=== PATIENT | female | born 1960 | race Caucasian/White ===

== ENCOUNTER 2017-08-20 08:24 | Day surgery (SDC) | payer OTHER ==
[2017-08-20] MEDS ORDERED: Versed 2 MG/2 ML Injection IV ONE (08:25)
[2017-08-20] MEDS ORDERED: DIPRIVAN 200 MG/20 ML IV ONE (08:25)
[2017-08-20] MEDS ORDERED: Lactated Ringers 1,000 ML IV SCH (09:00)
--- NOTE | 2017-08-20 10:11 | HP ---
DATE OF SURGERY: 08/20/2017 HISTORY OF PRESENT ILLNESS: The patient is a 57 year-old with history of tubular adenoma in the past two or three follow up colonoscopies. No bloody stools. No pain. Family history of colon cancer. She also had problem with trouble swallowing upper esophagus, some bleeding in the throat from swollen upper esophagus. She is in need for upper endoscopy and colonoscopy. PAST MEDICAL HISTORY: Depression, arthritis, asthma. PAST SURGICAL HISTORY: Hysterectomy, diagnostic laparoscopy, carpal tunnel, septoplasty, kidney stone removal, trigger thumbs bilateral hands, cholecystectomy, colonoscopy and arthroscopy. MEDICATIONS: Omeprazole, Sertraline, Sertraline. ALLERGIES: PENICILLIN, HYDROCODONE, ERYTHROMYCIN, LATEX. FAMILY HISTORY: Grandfather had colon cancer. Hypertension. SOCIAL HISTORY: No smoking. Reports social alcohol abuse denies abuse. REVIEW OF SYSTEMS: Twelve systems reviewed per admission assessment. No chest pain or palpitations other systems negative or noncontributory as above and per preadmission questionnaire. PHYSICAL EXAMINATION: GENERAL: No acute distress. HEENT: Sclerae nonicteric. NECK: No JVD. CHEST: Equal excursion, nonlabored breathing. CVS: Regular rate and rhythm. ABDOMEN: Soft. No peritoneal signs. EXTREMITIES: No significant edema. NEURO: Alert, moving extremities symmetrically. No gross motor deficits noted. IMPRESSION: She is having some trouble swallowing upper esophagus and dysphagia in need of upper endoscopy possible biopsy, possible dilatation as well as history of tubular adenoma in need of follow up screening colonoscopy. I feel she is a candidate. She is shown the risk sheet and explained the procedure in detail but not limited to bleeding, infection; small risk of bowel injury or perforation possibly requiring open procedure, small risk of missed or nondiagnosis or incomplete exam possibly requiring barium enema, other studies or procedures, general risk of anesthesia or sedation, risk of bowel prep, postoperative risk of nausea or cramping but not limited to, risk of perforation with dilatation. She also understands if dilatation required also understands if improves her swallowing there is a possibility that she may need it done again down the road. She also understands the possibility of narrowed area on dilatation may not improve her symptoms that this is more of a neurological or functional problems. She understands all the above but not limited too. Will proceed with EGD possible biopsy, possible dilatation as well as screening colonoscopy as an outpatient.
[2017-08-20 15:27] VITALS: BP 148/77; PULSE 64; O2SAT 100
--- NOTE | 2017-08-21 09:04 | OP ---
SURGERY DATE/TIME: 08/20/2017 1015 PREOPERATIVE DIAGNOSES: 1) Dysphagia upper esophagus. 2) History of polyps. POSTOPERATIVE DIAGNOSES: 1) Mild chronic gastritis. 2) Proximal esophageal narrowing and spasm. 3) Poor right colon prep. 4) Small early polyps versus hyperplastic lesion transverse colon and sigmoid colon. 5) Diverticulosis. 6) Small internal and external hemorrhoids. 7) Tortuous colon. PROCEDURES: 1) EGD with cold biopsy of the antrum to evaluate for Helicobacter pylori. 2) Esophageal balloon dilatation proximal esophageal narrowing (size 20 balloon dilator). 3) Colonoscopy to cecum with hot snare polypectomy small sigmoid colon polyp. 4) Hot biopsy removal of small early polyp versus hyperplastic lesion transverse colon. SURGEON: Dr. Pascual Barney. ANESTHESIA: MAC. ESTIMATED BLOOD LOSS: Minimal. INDICATIONS: As noted above. Risks and benefits explained in detail and not limited to and consent obtained. DESCRIPTION OF PROCEDURE AND FINDINGS: The patient is taken to the endoscopy room. MAC anesthesia introduced. After official time out and no disagreement with planned procedure, a bite block positioned. Video gastroscope passed down the esophagus and had a narrowed upper esophageal area where she had been having symptoms. I felt that would benefit from dilatation. The scope was able to be just passed through. The gastroesophageal junction about 38 cm to the patent pylorus to the junction of the second and third portion of the duodenum. Duodenum and duodenal bulb grossly unremarkable. Back in the stomach showed some mild chronic gastritis. A cold biopsy taken to evaluate for CLOtest for Helicobacter pylori. There were no signs of any obvious ulcers or masses. The scope pulled back to gastroesophageal junction noted about 38 cm. Z-line was fairly crisp. No gross signs of Ho's. She did have some tertiary contractions of the esophagus. Otherwise the scope was pulled back. She had proximal esophageal narrowing and it was felt would benefit from dilatation. The scope was passed back down the stomach. Balloon dilator carefully inserted. The scope pulled back up to the proximal esophagus and in three stages, first initial stage for 30 to 40 seconds. The second stage for 30 to 40 seconds. The final stage size 20 balloon dilator for 2 minutes dilating the proximal esophageal narrowing and spasm. The balloon catheter was then released and withdrawn. The scope is passed back down in the stomach and on withdrawal there were no signs of any full thickness issues secondary to dilatation. The area was much more widely patent. The scope was withdrawn. The patient tolerated the procedure well. Attention was then turned to the colonoscopy. Digital rectal exam did not reveal any rectal masses. She did have some internal and external hemorrhoids. Video colonoscope inserted and passed up the tortuous sigmoid, descending, transverse colon. The left colon was much better prepped. The right colon had a large amount of stool semi-solid, liquidy and solid stool very much limiting the exam for small lesions. With external pressure and positioning on her back the scope was able to be passed through the cecum. Appendiceal orifice and ileocecal valve was noted. The scope was slowly and carefully withdrawn. There were no signs of any large polyps, masses or obstructing lesions. There was a small 2 mm raised lesion versus early polyp or hyperplastic lesion in the transverse colon removed with hot biopsy forceps and brief bursts of cautery. Good hemostasis noted. The scope was then carefully pulled back. She did have some diverticulosis. She had some small internal and external hemorrhoids. There was a small polyp that was removed with hot snare in the proximal sigmoid colon with brief bursts of cautery and hot snare elevating well away from bowel wall. Good hemostasis noted. The staff said the polyp was retrieved. The scope was then pulled back to the rectum. It had some internal and external hemorrhoids. Otherwise no signs of any large polyps, masses or obstructing lesions. The scope was withdrawn. The patient tolerated the procedure well. There were no immediate complications.
== END 2017-08-20 12:10 | disposition home or self-care (01) ==
LOC: SDC 08:24
PROVIDERS: ATTEND Surgery
PROC: 0DB78ZX Excision of Stomach, Pylorus, Via Natural or Artificial Opening Endoscopic, Diagnostic (ICD-10-PCS; principal; 2017-08-20)
PROC: 0D718ZZ Dilation of Upper Esophagus, Via Natural or Artificial Opening Endoscopic (ICD-10-PCS; 2017-08-20)
PROC: 0DBN8ZX Excision of Sigmoid Colon, Via Natural or Artificial Opening Endoscopic, Diagnostic (ICD-10-PCS; 2017-08-20)
PROC: 0DBL8ZX Excision of Transverse Colon, Via Natural or Artificial Opening Endoscopic, Diagnostic (ICD-10-PCS; 2017-08-20)
DX: K29.50 Unspecified chronic gastritis without bleeding (principal); K22.2 Esophageal obstruction; K63.5 Polyp of colon; K57.90 Diverticulosis of intestine, part unspecified, without perforation or abscess without bleeding; K64.4 Residual hemorrhoidal skin tags; K64.8 Other hemorrhoids; Z86.010 Personal history of colon polyps
CPT/HCPCS: 00740; 87081; C1726; J2250; J2704

== ENCOUNTER 2017-09-14 15:28 | Emergency (ER) | payer OTHER ==
[2017-09-14 15:45] VITALS: O2SAT 96
[2017-09-14] MEDS ORDERED: TORAdol 30 mg Injection IM ONE (16:17)
--- NOTE | 2017-09-14 16:22 | ERPHSYRPT ---
- History of Present Illness Time Seen by Provider: 09/14/17 16:17 Source: patient Exam Limitations: no limitations Patient Subjective Stated Complaint: here for cough productive, runny nose, no fever, was seen sunday and started on mederol dose pack, Triage Nursing Assessment: pt alert,resp easy, chest clear.productive green/ brown cough, skin w/d pink Physician History: The patient is a 57-year-old female who did receive her influenza vaccination this year presents with complaints of cough, nasal congestion, runny nose, sore throat, and hoarseness for 6 days. She was seen in [facility] 4 days ago and was told that if she had the flu, there was nothing more they could do then give her a Medrol Dosepak. She has been taking the steroid without significant relief. She has had sinus surgery and is concerned that she has a sinus infection because her sinus drainage sometimes is green and bloody. Her past medical history is significant for GERD, sinusitis, and sinus surgery. Timing/Duration: day(s) (6) Cough Quality/Degree: dry cough Possible Cause: occasional episodes Modifying Factors: Improves With: coughing Associated Symptoms: nasal drainage, sore throat Allergies/Adverse Reactions: cefaclor [From Ceclor] Allergy (Verified 09/14/17 15:45) erythromycin base Allergy (Verified 09/14/17 15:45) hydrocodone Allergy (Verified 09/14/17 15:45) latex Allergy (Verified 09/14/17 15:45) Penicillins Allergy (Verified 09/14/17 15:45) Sulfa (Sulfonamide Antibiotics) Allergy (Verified 09/14/17 15:45) citalopram [From Celexa] Adverse Reaction (Verified 09/14/17 15:45) Home Medications: Cetirizine HCl [Zyrtec] 10 mg PO DAILY 08/15/17 [History] Omeprazole [Prilosec] 40 mg PO DAILY 08/15/17 [History] Sertraline HCl [Zoloft] 50 mg PO DAILY 08/15/17 [History] Hx Influenza Vaccination/Date Given: Yes Hx Pneumococcal Vaccination/Date Given: No - Review of Systems Constitutional: No Fever, No Chills Eyes: Discharge Ears, Nose, & Throat: Nose Congestion, Nose Discharge, Throat Pain, Hoarse Respiratory: Cough Cardiac: No Chest Pain, No Edema, No Syncope Abdominal/Gastrointestinal: No Abdominal Pain, No Nausea, No Vomiting, No Diarrhea Genitourinary Symptoms: No Dysuria Musculoskeletal: No Back Pain, No Neck Pain Skin: No Rash Neurological: No Dizziness, No Focal Weakness, No Sensory Changes Psychological: No Symptoms Endocrine: No Symptoms Hematologic/Lymphatic: No Symptoms Immunological/Allergic: No Symptoms All Other Systems: Reviewed and Negative - Past Medical History Pertinent Past Medical History: Yes GI Medical History: Esophageal Disorder, Other Psycho-Social History: Depression - Past Surgical History Genitourinary: No Pertinent History Female Surgical History: Hysterectomy Other Surgical History: carpal tunnel.kidney stone removal, - Social History Smoking Status: Never smoker Exposure to second hand smoke: No Drug Use: none Patient Lives Alone: No - Female History Hx Last Menstrual Period: post Hx Now: No - Nursing Vital Signs Nursing Vital Signs: Initial Vital Signs Temperature 98.7 F 09/14/17 15:37 Pulse Rate 87 09/14/17 15:37 Respiratory Rate 20 09/14/17 15:37 Blood Pressure 146/83 09/14/17 15:37 O2 Sat by Pulse Oximetry 96 09/14/17 15:37 Pain Scale Pain Intensity 2 - Physical Exam General Appearance: mild distress Eye Exam: PERRL/EOMI, eyes nml inspection Ears, Nose, Throat Exam: normal ENT inspection, TMs normal, pharynx normal, moist mucous membranes Neck Exam: normal inspection, non-tender, supple, full range of motion Respiratory Exam: normal breath sounds, lungs clear, No respiratory distress Cardiovascular Exam: regular rate/rhythm, normal heart sounds Gastrointestinal/Abdomen Exam: soft, No tenderness Pelvic Exam: not done Rectal Exam: not done Back Exam: normal inspection, No CVA tenderness, No vertebral tenderness Extremity Exam: normal inspection, normal range of motion Neurologic Exam: alert, oriented x 3, cooperative, normal mood/affect, sensation nml, No motor deficits Skin Exam: normal color, warm, dry, No rash Lymphatic Exam: No adenopathy SpO2 Interpretation: normal SpO2: 96 Oxygen Delivery: Room Air - Radiology Exams Chest X-ray Interpretation: Reviewed by me, Negative (Per Dr Palma.) Ordered Tests: Active Orders 24 hr Category Date Time Status CHEST 2 VIEWS (PA AND LAT) Stat Exams 09/14/17 16:17 Completed Medication Summary Discontinued Medications Generic Name Dose Route Start Last Admin Trade Name Freq PRN Reason Stop Dose Admin Ketorolac Tromethamine 60 mg 09/14/17 16:17 09/14/17 16:37 Toradol 30 Mg Injection IM 09/14/17 16:18 60 mg STAT ONE Administration Ketorolac Tromethamine Confirm 09/14/17 16:37 Toradol 30 Mg Injection Administered 09/14/17 16:38 Dose 60 mg .ROUTE .STK-MED ONE - Progress Progress: improved Counseled pt/family regarding: diagnosis, rad results - Departure Time of Disposition: 16:55 Departure Disposition: Home Clinical Impression: Influenza, Sinusitis Condition: Stable Critical Care Time: No Referrals: LESLY WHIPPLE [Primary Care Provider] - Additional Instructions: Clinically you have an influenza infection. You also have sinusitis. You were given Toradol 60 mg by IM in the ER. Take azithromycin 500 mg daily for 3 days. Use Afrin nasal spray [id number] for 3 days as well. Follow-up as needed. Prescriptions: Azithromycin 500 mg PO DAILY #3 tablet
[2017-09-14] MEDS ORDERED: TORAdol 30 mg Injection ONE (16:37)
--- NOTE | 2017-09-14 16:53 | XRAY ---
Indication: Cough. Laryngitis. Comparison: None PA/lateral chest demonstrates normal heart and lungs. Bony thorax intact.
[2017-09-14 17:07] VITALS: BP 144/89; PULSE 72
== END 2017-09-14 17:04 | disposition home or self-care (01) ==
LOC: ED 15:28
DX: J11.1 Influenza due to unidentified influenza virus with other respiratory manifestations (principal); J32.9 Chronic sinusitis, unspecified; R05 Cough; R09.81 Nasal congestion; R49.0 Dysphonia
CPT/HCPCS: 71020; 96372; 99284; J1885

== ENCOUNTER 2017-11-06 07:58 | Day surgery (SDC) | payer OTHER ==
[~2017-11-06 07:58] MED LIST: Zofran 4 MG/2 ML VIAL IV PRN
[2017-11-06] MEDS ORDERED: Versed 2 MG/2 ML Injection IV ONE (07:59)
[2017-11-06] MEDS ORDERED: DIPRIVAN 200 MG/20 ML IV ONE (07:59)
[2017-11-06] MEDS ORDERED: Lactated Ringers 1,000 ML IV SCH (08:00)
[2017-11-06] MEDS ORDERED: Ak-Dilate OPHTHALMIC*** 0.71 ML, Cyclogyl 1% OPHTH SOL 5 ML 0.71 ML, GATIFLOXACIN 0.5% ... OP ONE ×4 (08:00)
[2017-11-06] MEDS ORDERED: TETRACAINE 0.5% STERI-UNIT SOL OP ONE ×2 (08:00)
[2017-11-06] MEDS ORDERED: Lactated Ringers 1,000 ML IV ONE (08:29)
[2017-11-06 11:56] VITALS: O2SAT 100
[2017-11-06] MEDS ORDERED: BETADINE 5% OPHTHALMIC 30 ML OP ONE (12:00)
[2017-11-06] MEDS ORDERED: LIDOCAINE HCL 1% AMPUL 5 ML IJ ONE (12:00)
[2017-11-06] MEDS ORDERED: Epinephrine Preservative Free 1 MG/ML INTRAOP ONE (12:00)
[2017-11-06 13:02] VITALS: BP 184/92; PULSE 76
--- NOTE | 2017-11-07 08:35 | OP ---
DATE/TIME OF OPERATION: 11/06/2016 1053 TIME DICTATED: 1211 PREOPERATIVE DIAGNOSIS: Senile cataract of left eye. POSTOPERATIVE DIAGNOSIS: Senile cataract of left eye. SURGEON: Jodee Ortiz MD BACON DE RINDER: None. OPERATION: Cataract extraction of left eye with an intraocular lens implant. STANDARD __X___ COMPLEX ANESTHESIA: MAC. ___X___ Monitored anesthesia care in combination with topical and intra-cameral anesthesia (because of the established specific risk of reflux, arrhythmias, or an anxiety attack associated with ocular manipulation as well as difficulty of the electron tube assembler to manage such potentially catastrophic events while simultaneously attempting to complete the surgical procedure, it was deemed necessary for the patient's safety to have an anesthesiologist or a nurse channel cementer outsole machine present during the procedure whenever possible. The anesthesiologist or the nurse channel cementer outsole machine was utilized to monitor and regulate the intravenous sedation of the patient, so the patient was cooperative, relaxed and comfortable). Topical anesthesia using Tetracaine eye drops together with intra cameral anesthesia using Lidocaine 1% MPF. The nurse was utilized to monitor the patient. ANESTHESIA PROVIDER: Andrea Aranda CRNA. COMPLICATIONS: None. BLOOD LOSS: None. INDICATIONS: The patient is undergoing cataract surgery in the hopes of eliminating the visual complaints and difficulty. PROCEDURE: After arriving at the facility's outpatient surgery area, an IV was started; the patient was given 5 mg of p.o. Versed. (If an anesthesia provider was not monitoring the patient) The patient was then given topical anesthetic Tetracaine eye drops. A cotton pellet was soaked into a solution of a combination of Zymaxid 0.5%, Ayaz-Synephrine 2.5% and Ocufen (other drops might have been substituted referenced in the patient's record). The pellet was inserted by the RN into the lower conjunctival cul-de-sac with a sterile forceps and left for 20 minutes. The pellet was then removed by the RN with a sterile forceps before taking the patient to the operating room. The preoperative area nurse identified the patient and marked the correct eye to be operated on. I identified the correct eye to be operated on and marked it appropriately in the outpatient surgery area. The patient was then taken into the operating room. Tetracaine eye drops were installed again in the correct eye. The eyelids and the lashes and the lid margins were scrubbed with Betadine solution. One drop of the diluted Betadine solution was placed in the conjunctival cul-de-sac for 45 seconds and then was irrigated. A drop of Tetracaine Gel was placed in the conjunctival cul-de-sac. The patient's forehead was taped to secure it during the procedure. The patient was monitored. The patient was then draped in the usual way for this procedure. An eye speculum was used to separate the eyelids. The eye was then fixated and a temporal 2.5 mm incision was made in the clear cornea temporally at the limbus. Through the incision, 0.25 cc of 1% non-preserved lidocaine was injected into the anterior chamber for intracameral anesthesia. The anterior chamber was then filled with viscoelastic. The pupil was small. I felt that it would be safer to mechanically dilate the pupil. A Malyugin ring was used at this point which dilated the pupil. That was removed at the end of the procedure prior to aspiration of the viscoelastic from the anterior chamber and posterior to the intraocular lens implant. The cataract had a great amount of cortical changes. That rendered seeing the anterior capsule difficult for a safe performance of an anterior capsulotomy. I injected an air bubble into the anterior chamber. I then injected 1 ML of vision blue solution into the anterior chamber. The vision blue solution was irrigated from the anterior chamber after 30 seconds. The anterior capsule was stained which facilitated performing the anterior capsulotomy safely. After that was completed, a cystotome was introduced into the anterior chamber and a round anterior capsulotomy was performed. The capsule was removed by a forceps. Hydrodissection was next carried utilizing a 25-gauge cannula and balanced salt solution to delineate the cortical material from the capsule and the nucleus from the cortical material. The nucleus was rotated freely into the capsular bag with no difficulty. The phaco tip of the [employer] Phacoemulsifier was introduced into the anterior chamber and two grooves were made into the nucleus 90 degrees apart. Using two spatulas resulted into the nucleus being fractured into four quadrants. The phaco tip was then used to remove each quadrant of the nucleus. Viscoelastic was used during this process to protect the corneal endothelium. Once the entire nucleus was removed, the phaco tip then was removed and the irrigation tip was introduced into the eye and the cortex was removed. The posterior capsule was polished. It was noticed that there was a tear into the posterior capsule with few vitreous strands into the pupil plan. An anterior vitrectomy was performed. A 9.50 diopter, [id number], posterior chamber lens implant, was inspected and found to be grossly normal. The implant was inserted into the implant injector cartridge; Viscoelastic again was introduced into the anterior chamber, which filled the capsular bag. The implant injector's cartridge tip was placed at the limbal wound and the posterior chamber implant was released into the capsular bag and rotated appropriately. The implant was found to be into the capsular bag and it was centered. __X__ 0.2 ml of Tri-Moxi was introduced via 27 gauge cannula into the vitreous cavity through the ciliary processes. Viscoelastic was aspirated from the anterior chamber and posterior to the intraocular lens implant from the capsular bag using the irrigating tip. The anterior chamber was irrigated and filled with 5 cc antibiotic solution (500 cc of BSS plus 2 ml of Fortaz 100 mg/ml) ( if patient was not allergic to the medication). The lips of the corneal incision were hydrated using BSS solution. The anterior chamber was checked and found to be water tight. One drop each of antibiotic, steroid and NSAID drops (refer to chart for drops used) were placed in the conjunctival cul-de-sac of the operated eye. Patient tolerated the procedure quite well and left the operating room in satisfactory condition. DISCHARGE SUMMARY: The patient was released in stable condition. The patient and those with the patient were given an instruction sheet as of how to care for the eye after surgery as well as counseling on any abnormal laboratory studies by the postoperative RN. The patient was also given an appointment card for follow-up in the office and is to call immediately for any difficulties including but not limited to pain in the eye, decreased vision, discharge from the eye, headache and or fever. DISCHARGE DIAGNOSIS: Pseudophakia of left eye.
== END 2017-11-06 14:12 | disposition home or self-care (01) ==
LOC: SDC 07:58
PROVIDERS: ATTEND Ophthalmology
PROC: 08RK3JZ Replacement of Left Lens with Synthetic Substitute, Percutaneous Approach (ICD-10-PCS; principal; 2017-11-06)
PROC: 08B53ZZ Excision of Left Vitreous, Percutaneous Approach (ICD-10-PCS; 2017-11-06)
DX: H25.9 Unspecified age-related cataract (principal); J45.909 Unspecified asthma, uncomplicated; F32.9 Major depressive disorder, single episode, unspecified; M19.90 Unspecified osteoarthritis, unspecified site; K21.9 Gastro-esophageal reflux disease without esophagitis; Z79.899 Other long term (current) drug therapy
CPT/HCPCS: 00142; C1780; J0171; J2250; J2704; A9270-GY

== ENCOUNTER 2017-12-04 08:57 | Day surgery (SDC) | payer OTHER ==
[~2017-12-04 08:57] MED LIST changes: +Ak-Dilate OPHTHALMIC*** 0.71 ML, Cyclogyl 1% OPHTH SOL 5 ML 0.71 ML, GATIFLOXACIN 0.5% ... OP ONE; +Lactated Ringers 1,000 ML IV SCH; +TETRACAINE 0.5% STERI-UNIT SOL OP ONE; -Zofran 4 MG/2 ML VIAL IV PRN
[2017-12-04] MEDS ORDERED: Versed 2 MG/2 ML Injection IV ONE (08:58)
[2017-12-04] MEDS ORDERED: DIPRIVAN 200 MG/20 ML IV ONE (08:58)
[2017-12-04] MEDS ORDERED: Zofran 4 MG/2 ML VIAL IV PRN (09:00)
[2017-12-04] MEDS ORDERED: ACETAZOLAMIDE 250 MG TABLET PO ONE (09:00)
[2017-12-04] MEDS ORDERED: Lactated Ringers 1,000 ML IV ONE (09:12)
[2017-12-04 12:01] VITALS: BP 159/95; PULSE 74; O2SAT 100
[2017-12-04] MEDS ORDERED: LIDOCAINE HCL 1% AMPUL 5 ML IJ ONE (13:45)
[2017-12-04] MEDS ORDERED: Epinephrine Preservative Free 1 MG/ML INTRAOP ONE (13:45)
[2017-12-04] MEDS ORDERED: BETADINE 5% OPHTHALMIC 30 ML OP ONE (13:45)
--- NOTE | 2017-12-04 14:58 | OP ---
DATE/TIME OF OPERATION: 12/04/2017 1045 TIME DICTATED: 1247 PREOPERATIVE DIAGNOSIS: Senile cataract of right eye. POSTOPERATIVE DIAGNOSIS: Senile cataract of right eye. SURGEON: Jodee Ortiz MD PRINCIPAL GIFTS OFFICER: None. OPERATION: Cataract extraction of right eye with an intraocular lens implant. STANDARD __X___ COMPLEX ANESTHESIA: MAC. ___X___ Monitored anesthesia care in combination with topical and intra-cameral anesthesia (because of the established specific risk of reflux, arrhythmias, or an anxiety attack associated with ocular manipulation as well as difficulty of the flight service agent to manage such potentially catastrophic events while simultaneously attempting to complete the surgical procedure, it was deemed necessary for the patient's safety to have an anesthesiologist or a nurse clam shovel operator present during the procedure whenever possible. The anesthesiologist or the nurse clam shovel operator was utilized to monitor and regulate the intravenous sedation of the patient, so the patient was cooperative, relaxed, and comfortable). Topical anesthesia using Tetracaine eye drops together with intra cameral anesthesia using Lidocaine 1% MPF. The nurse was utilized to monitor the patient. ANESTHESIA PROVIDER: Andrea Aranda CRNA. COMPLICATIONS: None. BLOOD LOSS: None. INDICATIONS: The patient is undergoing cataract surgery in the hopes of eliminating the visual complaints and difficulty. PROCEDURE: After arriving at the facility's outpatient surgery area, an IV was started; the patient was given 5 mg of p.o. Versed. (If an anesthesia provider was not monitoring the patient) The patient was then given topical anesthetic Tetracaine eye drops. A cotton pellet was soaked into a solution of a combination of Zymaxid 0.5%, Ayaz-Synephrine 2.5% and Ocufen (other drops might have been substituted referenced in the patient's record). The pellet was inserted by the RN into the lower conjunctival cul-de-sac with a sterile forceps and left for 20 minutes. The pellet was then removed by the RN with a sterile forceps before taking the patient to the operating room. The preoperative area nurse identified the patient and marked the correct eye to be operated on. I identified the correct eye to be operated on and marked it appropriately in the outpatient surgery area. The patient was then taken into the operating room. Tetracaine eye drops were installed again in the correct eye. The eyelids and the lashes and the lid margins were scrubbed with Betadine solution. One drop of the diluted Betadine solution was placed in the conjunctival cul-de-sac for 45 seconds and then was irrigated. A drop of Tetracaine Gel was placed in the conjunctival cul-de-sac. The patient's forehead was taped to secure it during the procedure. The patient was monitored. The patient was then draped in the usual way for this procedure. An eye speculum was used to separate the eyelids. The eye was then fixated and a temporal 2.5 mm incision was made in the clear cornea temporally at the limbus. Through the incision, 0.25 cc of 1% non-preserved lidocaine was injected into the anterior chamber for intracameral anesthesia. The anterior chamber was then filled with viscoelastic. The pupil was small. I felt that it would be safer to mechanically dilate the pupil. A Malyugin ring was used at this point which dilated the pupil. That was removed at the end of the procedure prior to aspiration of the viscoelastic from the anterior chamber and posterior to the intraocular lens implant. The cataract had a great amount of cortical changes. That rendered seeing the anterior capsule difficult for a safe performance of an anterior capsulotomy. I injected an air bubble into the anterior chamber. I then injected 1 ML of vision blue solution into the anterior chamber. The vision blue solution was irrigated from the anterior chamber after 30 seconds. The anterior capsule was stained which facilitated performing the anterior capsulotomy safely. After that was completed, a cystotome was introduced into the anterior chamber and a round anterior capsulotomy was performed. The capsule was removed by a forceps. Hydrodissection was next carried utilizing a 25-gauge cannula and balanced salt solution to delineate the cortical material from the capsule and the nucleus from the cortical material. The nucleus was rotated freely into the capsular bag with no difficulty. The phaco tip of the [facility] Phacoemulsifier was introduced into the anterior chamber and two grooves were made into the nucleus 90 degrees apart. Using two spatulas resulted into the nucleus being fractured into four quadrants. The phaco tip was then used to remove each quadrant of the nucleus. Viscoelastic was used during this process to protect the corneal endothelium. Once the entire nucleus was removed, the phaco tip then was removed and the irrigation tip was introduced into the eye and the cortex was removed. The posterior capsule was polished. It was noticed that there was a tear into the posterior capsule with few vitreous strands into the pupil plan. An anterior vitrectomy was performed. A 10.00 diopter, [id number], posterior chamber lens implant, was inspected and found to be grossly normal. The implant was inserted into the implant injector cartridge; Viscoelastic again was introduced into the anterior chamber, which filled the capsular bag. The implant injector's cartridge tip was placed at the limbal wound and the posterior chamber implant was released into the capsular bag and rotated appropriately. The implant was found to be into the capsular bag and it was centered. 0.2 ml of Tri-Moxi was introduced via 27 gauge cannula into the vitreous cavity through the ciliary processes. Viscoelastic was aspirated from the anterior chamber and posterior to the intraocular lens implant from the capsular bag using the irrigating tip. The anterior chamber was irrigated and filled with 5 cc antibiotic solution (500 cc of BSS plus 2 ml of Fortaz 100 mg/ml) ( if patient was not allergic to the medication). The lips of the corneal incision were hydrated using BSS solution. The anterior chamber was checked and found to be water tight. ___X___ One drop each of antibiotic, steroid and NSAID drops (refer to chart for drops used) were placed in the conjunctival cul-de-sac of the operated eye. Patient tolerated the procedure quite well and left the operating room in satisfactory condition. DISCHARGE SUMMARY: The patient was released in stable condition. The patient and those with the patient were given an instruction sheet as of how to care for the eye after surgery as well as counseling on any abnormal laboratory studies by the postoperative RN. The patient was also given an appointment card for follow-up in the office and is to call immediately for any difficulties including but not limited to pain in the eye, decreased vision, discharge from the eye, headache and or fever. DISCHARGE DIAGNOSIS: Pseudophakia of right eye.
== END 2017-12-04 12:02 | disposition home or self-care (01) ==
LOC: SDC 08:57
PROVIDERS: ATTEND Ophthalmology
PROC: 08RJ3JZ Replacement of Right Lens with Synthetic Substitute, Percutaneous Approach (ICD-10-PCS; principal; 2017-12-04)
DX: H25.9 Unspecified age-related cataract (principal); Z96.1 Presence of intraocular lens; F32.9 Major depressive disorder, single episode, unspecified; K21.9 Gastro-esophageal reflux disease without esophagitis; J45.909 Unspecified asthma, uncomplicated
CPT/HCPCS: C1780; J0171; J2250; J2704; A9270-GY

== ENCOUNTER 2018-06-03 08:08 | Day surgery (SDC) | payer OTHER ==
[~2018-06-03 08:08] MED LIST changes: -Ak-Dilate OPHTHALMIC*** 0.71 ML, Cyclogyl 1% OPHTH SOL 5 ML 0.71 ML, GATIFLOXACIN 0.5% ... OP ONE; +Lactated Ringers 1,000 ML IV ONE; -Lactated Ringers 1,000 ML IV SCH; -TETRACAINE 0.5% STERI-UNIT SOL OP ONE
[2018-06-03] MEDS ORDERED: DIPRIVAN 200 MG/20 ML IV ONE (08:09)
[2018-06-03] MEDS ORDERED: Ketamine HCl 50 MG/ML IV ONE (08:09)
--- NOTE | 2018-06-03 08:19 | HP ---
DATE OF SURGERY: 06/03/2018 HISTORY OF PRESENT ILLNESS: The patient is a 57 year-old upper esophagus area chokes mainly solids that had been going on for the past one and a half months. Prior dilatation in the past. PAST MEDICAL HISTORY: Depression, asthma, arthritis. PAST SURGICAL HISTORY: Reconstruction of left foot in the past. Diagnostic laparoscopy for endometriosis in the past. She had a hysterectomy in the past. Appendectomy in the past. Carpal tunnel on left and the right, trigger thumb left and right, septoplasty, kidney stone removal in the past. Laparoscopic cholecystectomy, had lipomas removed. Upper endoscopy and colonoscopy in the past. Arthroscopy of the knee. Achilles tendon surgery in the past. Left knee replacement in the past. Cataract surgery in the past. MEDICATIONS: Omeprazole, Sertraline, cetirizine, lisinopril. ALLERGIES: HYDROCODONE, PENICILLIN, CODEINE, SULFA, ERYTHROMYCIN, CITALOPRAM, CECLOR. LATEX. FAMILY HISTORY: Cancer, heart disease, hypertension. SOCIAL HISTORY: No smoking, social alcohol use denies abuse. REVIEW OF SYSTEMS: Twelve systems reviewed pertinent for as noted above. No chest pain or palpitations other systems negative or noncontributory as above and per preadmission questionnaire. PHYSICAL EXAMINATION: GENERAL: No acute distress. HEENT: Sclerae nonicteric. NECK: No JVD. CHEST: Equal excursion, nonlabored breathing. CVS: Regular rate and rhythm. ABDOMEN: Soft. No peritoneal signs. EXTREMITIES: No significant edema. NEURO: Alert, oriented, moving extremities symmetrically. No gross motor deficits noted. IMPRESSION: Dysphagia upper esophagus. I feel the patient would benefit from EGD, possible biopsy, possible dilatation and also will test for eosinophilic esophagitis. Risks and benefits explained in detail but not limited to bleeding or infection, risk of bowel injury or perforation possibly requiring open procedure, risk of missed or nondiagnosis or incomplete exam possibly requiring barium swallow, other studies or procedures. She understands that if dilatation improves her swallowing that she may need it repeated again in the future. She understands it could be more functional or neurologic issue rather than mechanical narrowing and dilatation may not improve her symptoms. She understands and agrees to the planned procedure and will proceed with EGD, possible biopsy, possible dilatation as an outpatient.
[2018-06-03] MEDS: Lactated Ringers 1,000 ML IV SCH (08:29)
[2018-06-03 11:35] VITALS: BP 147/97; PULSE 72; O2SAT 99
--- NOTE | 2018-06-03 14:53 | OP ---
SURGERY DATE/TIME: 06/03/2018 1016 PREOPERATIVE DIAGNOSIS: Dysphasia. POSTOPERATIVE DIAGNOSES: 1) Mild gastritis. 2) Mild distal esophageal erythema biopsy path pending. 3) Symptomatic proximal esophageal narrowing and spasm. PROCEDURES: 1) EGD with cold biopsy of the antrum to evaluate for Helicobacter pylori. 2) Cold biopsy distal esophageal erythema. 3) Proximal esophageal balloon dilatation (size 20 balloon dilator). SURGEON: Dr. Pascual Barney. ANESTHESIA: MAC. ESTIMATED BLOOD LOSS: Minimal. INDICATIONS: As noted above. Risks and benefits explained in detail and not limited to and consent obtained. DESCRIPTION OF PROCEDURE AND FINDINGS: The patient is taken to the operating room. MAC anesthesia introduced. After official time out and no disagreement with planned procedure, bite block positioned. Video gastroscope passed into the oropharynx and proximal esophagus. There was no obvious mass or mucosal lesions to biopsy as she already had proximal esophageal narrowing and spasm and she was having symptoms here. The scope was able to be just passed through this year but given her degree of symptoms felt it warranted dilatation at the end of the procedure. The scope passed back down into the stomach through the patent pylorus to the junction of the second and third portions of the duodenum. Duodenum and duodenal bulb grossly unremarkable. Back in the stomach she had some mild gastritis. Cold biopsy taken to evaluate for Helicobacter pylori. Otherwise there were no signs of any ulcers, masses or other mucosal lesions. The scope was retroflexed. The gastroesophageal junction was fairly snug against the scope. No signs of any significant hiatal hernia. The scope pulled back to the gastroesophageal junction at about 39 cm. Z-line was fairly crisp. There was some distal esophageal erythema. No evidence of Ho's. No evidence of any erosive esophagitis. Cold biopsy taken for path. Good hemostasis noted. Otherwise the scope pulled up. Again, there were no other mucosal lesions throughout the remainder of the esophagus but there was symptomatic proximal esophageal narrowing and spasm. It was felt would benefit from dilatation. The scope passed back down into the stomach. Balloon catheter size 20 inserted and then pulled back up to the proximal esophageal narrowing where it was gradually inflated to first stage 45 second and second stage 45 seconds and final stage for 2 minutes. It should be noted the patient was doing a fair amount of coughing throughout this procedure requiring sedation per anesthesia. At this point at the final stage for 2 minutes with size 20 balloon dilator the balloon was decompressed pulled free and passed off. The scope is passed back down through this area which was much more widely patent. There was minimal superficial abrasion. No evidence of any full thickness disease or injury secondary to dilatation. Good hemostasis noted. The scope is then passed down into the stomach and slowly withdrawn. The area was much more widely patent. The scope is withdrawn. The patient tolerated the procedure well. There were no immediate complications. Findings discussed with family or friend out in the waiting area. I will see her back in the office in a couple weeks as I will be out of town next week. If she has any questions my partners can be contacted.
== END 2018-06-03 11:48 | disposition home or self-care (01) ==
LOC: SDC 08:08
PROVIDERS: ATTEND Surgery
DX: K29.70 Gastritis, unspecified, without bleeding (principal); R47.02 Dysphasia; L53.8 Other specified erythematous conditions; K22.2 Esophageal obstruction; J45.909 Unspecified asthma, uncomplicated; M19.90 Unspecified osteoarthritis, unspecified site; F32.9 Major depressive disorder, single episode, unspecified; N80.9 Endometriosis, unspecified
CPT/HCPCS: 88305; 94250; C1726; J2704

== ENCOUNTER 2019-12-07 22:53 | Emergency (ER) | payer OTHER ==
[2019-12-07 23:08] VITALS: O2SAT 96
--- NOTE | 2019-12-07 23:29 | ERPHSYRPT ---
- History of Present Illness Time Seen by Provider: 12/07/19 23:10 Source: patient Patient Subjective Stated Complaint: pt cut her finger on a mandoline cutting sweet potatoes Triage Nursing Assessment: pt c/o cut to rt hand little finger. Pt was cutting sweet potatoes using a mandoline making dog treats and sliced her finger. Physician History: The patient is a [id number] 59-year-old female who presents with a chief complaint of a laceration to her right pinky finger. Onset was around 2200 hrs. this evening. The pain is described as a sharp pain that is nonradiating and constant. She endorsed having venous bleeding from the wound that has not stopped since that time despite applying direct pressure. She is not taking any antiplatelets or any anticoagulants. Her last tetanus prophylaxis was reportedly 3 years ago. She reported was using some sort of food slicer to make dog crates when she injured her finger Allergies/Adverse Reactions: hydrocodone Allergy (Severe, Verified 06/03/18 08:23) Tightness of Throat erythromycin base Allergy (Intermediate, Verified 06/03/18 08:23) Nausea and Vomiting Penicillins Allergy (Intermediate, Verified 06/03/18 08:23) Hives Sulfa (Sulfonamide Antibiotics) Allergy (Intermediate, Verified 06/03/18 08:23) Hives latex Allergy (Mild, Verified 06/03/18 08:23) Skin Irritation cefaclor [From Ceclor] Allergy (Unknown, Verified 06/03/18 08:23) codeine Allergy (Verified 06/03/18 08:23) citalopram [From Celexa] Adverse Reaction (Unknown, Verified 06/03/18 08:23) Home Medications: Cetirizine HCl [Zyrtec] 10 mg PO DAILY 08/15/17 [History] Omeprazole [Prilosec] 40 mg PO DAILY 08/15/17 [History] Sertraline HCl [Zoloft] 50 mg PO DAILY 08/15/17 [History] lisinopriL [Zestril] 2.5 mg PO DAILY 11/30/17 [History] Meloxicam 15 mg PO DAILY 12/07/19 [History] Hx Tetanus, Diphtheria Vaccination/Date Given: Yes Hx Influenza Vaccination/Date Given: Yes Hx Pneumococcal Vaccination/Date Given: No Immunizations Up to Date: Yes Travel Risk - International Travel Have you traveled outside of the country in past 3 weeks: No Have you or anyone close to you been diagnosed with or: No Do your reside in a community with a known COVID-19 case?: No - Coronavirus Screening Has patient experienced Coronavirus symptoms: No - Review of Systems Constitutional: No Fever, No Chills Skin: Other (Wound to L pinky finger with bleeding) Neurological: No Symptoms All Other Systems: Reviewed and Negative - Past Medical History Pertinent Past Medical History: Yes Neurological History: Migraines ENT History: Cataracts Cardiac History: Hypertension Respiratory History: Asthma, Pneumonia Endocrine Medical History: No Pertinent History Musculoskeletal History: Fractures, Osteoarthritis GI Medical History: Esophageal Disorder, GERD, Gallbladder Disease, Other History: No Pertinent History Psycho-Social History: Anxiety, Depression Female Reproductive Disorders: No Pertinent History Other Medical History: L 4th and 5th metatarsal fx - Past Surgical History Past Surgical History: Yes Neuro Surgical History: No Pertinent History Cardiac: No Pertinent History Respiratory: No Pertinent History Gastrointestinal: Appendectomy, Cholecystectomy, Exploratory Laparoscopy Genitourinary: Kidney Surgery, Other Musculoskeletal: Orthopedic Surgery Female Surgical History: Hysterectomy Other Surgical History: carpal tunnel.kidney stone removal,EGD Aug 2017, septoplasty, kidney stone removal, colonoscopy, arthroplasty, [facility] wrist, Left knee replacement 2017 cholecystectomy, total hysterectomy, reconstructive surgery left foot and bone spur removed left heel - Social History Smoking Status: Never smoker Exposure to second hand smoke: No Drug Use: none Patient Lives Alone: Yes - Female History Hx Now: No - Nursing Vital Signs Nursing Vital Signs: Initial Vital Signs Temperature 98.6 F 12/07/19 23:07 Pulse Rate 71 12/07/19 23:07 Respiratory Rate 19 12/07/19 23:07 Blood Pressure 138/78 12/07/19 23:07 O2 Sat by Pulse Oximetry 96 12/07/19 23:07 Pain Scale Pain Intensity 0 - Physical Exam General Appearance: no apparent distress, alert Eye Exam: PERRL/EOMI, No photophobia, No EOM palsy/anisocoria Ears, Nose, Throat Exam: moist mucous membranes Neck Exam: normal inspection Respiratory Exam: normal breath sounds, lungs clear, airway intact, No chest tenderness, No respiratory distress Cardiovascular Exam: regular rate/rhythm, normal heart sounds, normal peripheral pulses, capillary refill <2 sec, No murmur, No friction rub, No gallop Pelvic Exam: not done Rectal Exam: deferred Extremity Exam: other (No evidence of tendon injury noted to the distal 5th finger) Neurologic Exam: alert, oriented x 3, normal mood/affect, other (Sensation to the distal 5th right finger was intact) Skin Exam: warm, dry, other (To the lateral distal aspect of the right pinky. It appears the skin had been completely avulsed and the only thing left was exposed soft tissue with no evidence of bone. There is no evidence of tendon issue or retained foreign body. Venous bleeding was present. Sensation to gross touch was intact to the distal tip of the affected finger. Capillary refill the tip of the right pinky finger), No rash, No petechiae SpO2: 96 - Course Nursing assessment & vital signs reviewed: Yes - Progress Progress: improved Progress Note: 12/08/19 03:17 Nontoxic in appearance. It appears the patient had an avulsion injury noted to the distal lateral tip of the right fifth finger and there was nothing for me to primarily close at this time. The wound was cleaned in a standard fashion and Surgicel was applied in addition to a bandage to stop the bleeding. Eventually, the patient was discharged home and instructed to care for the wound by avoiding submerging it in dirty water and to apply bacitracin to the wound at least twice a day. She was given some Surgicel to go home with an ED return precautions for wound infection was given. She agreed with and verbally understood the discharge plan. Counseled pt/family regarding: diagnosis, need for follow-up - Departure Departure Disposition: Home Clinical Impression: Avulsion of finger Condition: Stable Critical Care Time: No Referrals: STANFORD CERRATO [Primary Care Provider] - Instructions: Common Finger Injuries (DC) Prescriptions: Bacitracin 1 gm TP BID 2 Days #15 oint...g.
[2019-12-08 00:35] VITALS: BP 139/79; PULSE 70
== END 2019-12-08 00:33 | disposition home or self-care (01) ==
LOC: ED 22:53
DX: S61.206A Unspecified open wound of right little finger without damage to nail, initial encounter (principal); W26.8XXA Contact with other sharp object(s), not elsewhere classified, initial encounter; Y93.G1 Activity, food preparation and clean up
CPT/HCPCS: 99283

== ENCOUNTER 2021-01-31 08:35 | Day surgery (SDC) | payer OTHER ==
--- NOTE | 2021-01-31 08:08 | HP ---
DATE OF SURGERY: 01/31/2021 HISTORY OF PRESENT ILLNESS: The patient is a 60 year-old with history of polyps in the past, need for follow up screening colonoscopy. She denies any bloody stools. No change in bowel movements. Family history of grandparent with some colon cancer. She also had some dysphagia upper esophagus, chokes at times. She had prior history of some dilatation in the past, she reported. PAST MEDICAL HISTORY: Kidney stones, depression, asthma, migraine, arthritis, anemia. 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 PAST SURGICAL HISTORY: Foot surgery. Laparoscopy for endometriosis. Hysterectomy, appendectomy. Carpal tunnel. Septoplasty. Kidney stone removal in the past. Trigger thumb surgery. Cholecystectomy. Arthroscopy. Colonoscopy and EGD in the past. Cataract surgery in the past. She had dilatation in the past. MEDICATIONS: Cetirizine, vitamin D3, iron, vitamin B12, Spironolactone, omeprazole, levothyroxine, Echinacea, Krill oil. ALLERGIES: PENICILLIN. HYDROCODONE. ERYTHROMYCIN. CITALOPRAM. CECLOR. LATEX. FAMILY HISTORY: Cancer, heart disease, hypertension. SOCIAL HISTORY: No smoking. Social alcohol use denies abuse. REVIEW OF SYSTEMS: Fourteen systems reviewed. No chest pain or palpitations. Other systems negative or noncontributory as above and per preadmission questionnaire. PHYSICAL EXAMINATION: GENERAL: No acute distress. HEENT: Sclerae nonicteric. NECK: No JVD. CHEST: Equal excursion, nonlabored breathing, breath sounds symmetrical. CVS: Regular rate and rhythm. ABDOMEN: Soft, nontender. EXTREMITIES: No significant edema. NEURO: Alert, moving extremities symmetrically. No gross motor deficits noted. RECTAL: Deferred timed to endoscopy exam. PSYCH: Appropriate mood and affect. IMPRESSION: History of polyps. She is in need of follow up screening colonoscopy. Additionally she had some dysphagia. She needs upper endoscopy possible biopsy, possible dilatation. Risks and benefits explained in detail including but not limited to bleeding or infection, risk of bowel injury or perforation possibly requiring open procedure, risk of missed or nondiagnosis or incomplete exam possibly requiring barium swallow, barium enema, other studies or procedures. General risk of anesthesia or sedation, risk of bowel prep but not limited to. She also understands dilatation and improves she may need that repeated again down the road. She also understands possibility dilatation may not improve her dysphagia if this is more of a neurological or functional problem. She understands and agrees to the planned procedure, will proceed with EGD probable biopsy possible dilatation as well as colonoscopy as an outpatient.
[~2021-01-31 08:35] MED LIST changes: -Lactated Ringers 1,000 ML IV ONE; +Lactated Ringers 1,000 ML IV SCH
[2021-01-31] MEDS ORDERED: Lactated Ringers 1,000 ML IV ONE (08:39)
[2021-01-31] MEDS ORDERED: DIPRIVAN 200 MG/20 ML IV ONE ×4 (10:26→11:05)
[2021-01-31] MEDS ORDERED: Versed 2 MG/2 ML Injection ONE (10:26)
[2021-01-31 12:26] VITALS: BP 112/87; PULSE 76; O2SAT 97
--- NOTE | 2021-02-01 08:10 | OP ---
SURGERY DATE/TIME: 01/31/2021 1032 PREOPERATIVE DIAGNOSES: 1) History of polyps. 2) History of dysphagia, need for upper endoscopy. 3) Need for follow up screening colonoscopy. POSTOPERATIVE DIAGNOSES: 1) Proximal esophageal narrowing and spasm, symptomatic. 2) Gastric polyp. 3) Mild gastritis. 4) Small polyp transverse colon, rectosigmoid colon and rectum. 5) Small polyp versus hyperplastic lesion transverse colon, rectosigmoid and rectum. 6) Mild diverticulosis. 7) Fair but limited prep. 8) ASA Class II. 9) Colon withdrawal time ten minutes. 10) Photo-documented appendiceal orifice and ileocecal valve area. PROCEDURES: 1) EGD with cold biopsy of antrum to evaluate for Helicobacter pylori. 2) Hot snare polypectomy of small gastric polyp. 3) Proximal esophageal dilatation with symptomatic narrowing and spasm (size 20 balloon dilator). 4) Colonoscopy to cecum. 5) Hot biopsy polypectomy small early polyp versus hyperplastic lesion versus hyperplasia of mucosa transverse colon. 6) Hot biopsy polypectomy removal of small early polyps versus hyperplastic lesion rectosigmoid colon and rectum. SURGEON: Dr. Pascual Barney. ANESTHESIA: MAC. ESTIMATED BLOOD LOSS: Minimal. INDICATIONS: As noted above. Risks and benefits explained in detail and not limited to and consent obtained. DESCRIPTION OF PROCEDURE AND FINDINGS: The patient is taken to the operating room. MAC anesthesia introduced. After official time out and no disagreement with planned procedure, bite block positioned. Video gastroscope easily passed down the oropharynx. There was some proximal esophageal narrowing and spasm this is the area where she was having symptoms. There was no obvious mass or lesion to biopsy but given the spasm, narrowing and her symptoms in this area it was felt worthwhile to try dilatation. The scope was able to be passed through the distal esophagus through the patent pylorus to the junction of the second and third portion of the duodenum. Third, second and first portion of the duodenum grossly unremarkable. No signs of any obvious inflammation or ulceration. The scope pulled back in the stomach. She did have some mild gastritis cold biopsy taken to evaluate for Helicobacter pylori. On retroflex the gastroesophageal junction was snug against the scope. No signs of any significant hiatal hernia. The scope was pulled back. Gastroesophageal junction was noted to be about 38 to 39 cm. She did have a small gastric polyp in the fundus this was removed with hot snare polypectomy. After biopsying the antrum for Helicobacter pylori and the polyp in the gastric antrum was removed with hot snare polypectomy with brief bursts of cautery. The staff was not sure if they were able to retrieve the specimen or not. Good hemostasis noted. Z-line was crisp. No signs of any significant inflammation or Ho's and the mucosa unremarkable up to the proximal esophageal symptomatic narrowing. There was no mass or lesion to biopsy in this area but given her symptoms and her narrowing it was felt this warranted dilatation. The scope passed back down the stomach. A 20 balloon catheter carefully inserted in the open space of the stomach, pulled back up to the proximal esophageal narrowed area and this was inflated the first stage 30 to 45 seconds with size 18 and then size 19 for 45 seconds, final size 20 balloon dilator for 2 minutes. The balloon catheter was then decompressed, removed and passed off. The scope more easily passed through this area down in the stomach and is carefully withdrawn appeared to have good hemostasis. No signs of any full thickness issues or injury secondary to dilatation. Again, the area seemed to be more wildly patent post-dilatation. The scope is withdrawn. Attention was then turned to colonoscopy. Digital rectal exam did not reveal any rectal masses. She did have some small internal hemorrhoids. Video colonoscope inserted and passed up through the tortuous sigmoid, descending, transverse colon and ascending colon. With external pressure the scope was able to pass around to the cecum. Appendiceal orifice and valve were well visualized and photo-documented. Prep overall was fair with some liquidy, semisolid stool a few areas of solid stool this is suction irrigated as clear as possible just slightly limiting exam for small lesions. The scope was carefully withdrawn over the next ten minutes. ASA Class II. Again, after photo-documenting the appendiceal orifice and valve area, the scope is carefully withdrawn over the next ten minutes. There is a small early polyp versus hyperplastic lesion versus hyperplasia mucosa which is removed with hot biopsy forceps with brief bursts of cautery in transverse colon. The scope is then carefully pulled back. She had some mild diverticulosis in the left colon. Down in the rectosigmoid area a small early polyp versus hyperplastic lesion removed with hot biopsy forceps with brief bursts of cautery. Good hemostasis noted. The scope was then pulled back into the rectum and a small early polyp versus hyperplastic lesion removed with hot biopsy forceps with brief bursts of cautery. Good hemostasis noted. She had some small internal hemorrhoids. There were no signs of any large polyps, masses or obstructing lesions. I will review her history of her previous polyps as well as biopsy results from these polyps to determine ultimate follow up recommendation for colonoscopy. The scope was withdrawn. The patient tolerated the procedure well. Findings discussed with the family out in the waiting area.
== END 2021-01-31 12:25 | disposition home or self-care (01) ==
LOC: SDC 08:35
PROVIDERS: ATTEND Surgery
DX: Z12.11 Encounter for screening for malignant neoplasm of colon (principal); Z09 Encounter for follow-up examination after completed treatment for conditions other than malignant neoplasm; Z86.010 Personal history of colon polyps; K29.70 Gastritis, unspecified, without bleeding; K31.7 Polyp of stomach and duodenum; K57.30 Diverticulosis of large intestine without perforation or abscess without bleeding; D12.3 Benign neoplasm of transverse colon; D12.8 Benign neoplasm of rectum; K22.2 Esophageal obstruction; K22.4 Dyskinesia of esophagus
CPT/HCPCS: 88305; 88312; C1726; J2250; J2704

== ENCOUNTER 2021-10-31 15:27 | Emergency (ER) | payer OTHER ==
--- NOTE | 2021-10-31 16:25 | XRAY ---
Indication: Pain following fall. Comparison: None 3 view left elbow demonstrates tiny lateral epicondyle spur and tiny well circumscribed coronoid process heterotopic ossification presumed degenerative versus old injury. No other bony, articular, or soft tissue abnormalities.
--- NOTE | 2021-10-31 16:27 | XRAY ---
Indication: Pain following fall. Comparison: None 2 view left forearm demonstrates tiny well-circumscribed cornoid process heterotopic ossification present degenerative versus old injury and moderate/advanced 1st metacarpal multangular scaphoid degenerative changes. No other bony, articular, or soft tissue abnormalities.
--- NOTE | 2021-10-31 16:29 | XRAY ---
Indication: Pain following fall. Comparison: None 3 view left wrist demonstrates moderate/advanced 1st metacarpal multangular scaphoid degenerative changes with tiny heterotopic ossifications and tiny triquetrum bone cysts. No other bony, articular, or soft tissue abnormalities.
--- NOTE | 2021-10-31 16:52 | ERPHSYRPT ---
- History of Present Illness Time Seen by Provider: 10/31/21 15:40 Source: patient Exam Limitations: no limitations Patient Subjective Stated Complaint: Left arm pain Triage Nursing Assessment: Patient ambulated back to ED and transferred self to bed. Patient A+O X3. Patient's skin pink, warm and dry. Patient states she was putting her slippers on when she tripped and fell landing onto her left arm. Patient complains of left forearm pain 2/10 that radiates to elbow. Physician History: Patient is a 61-year-old female presents to our ED with complaints of left arm pain. Patient states she was donning her slippers when she tripped and fell forward landing on her left arm. Injury occurred just prior to arrival. Patient complains of pain to her left wrist forearm and elbow. Pain described as an ache that is localized. No radiation. Pain worse with movement and palpation. Pain improved with rest. No BHT or LOC. No neck pain. Cervical spine cleared clinically. Patient denies associated chest pain or shortness of breath. No nausea vomiting or diaphoresis. No numbness tingling or weakness. Symptoms are mild to moderate in intensity. Patient declined pain medication. Patient voices no other complaints or concerns at this time. Occurred: just prior to arrival Method of Injury: fell Quality: constant Severity of Pain-Max: moderate Severity of Pain-Current: mild Extremities Pain Location: arm: left, elbow: left, wrist: left Modifying Factors: Improves With: nothing Associated Symptoms: none Allergies/Adverse Reactions: hydrocodone Allergy (Severe, Verified 10/31/21 15:32) Tightness of Throat erythromycin base Allergy (Intermediate, Verified 10/31/21 15:32) Nausea and Vomiting Penicillins Allergy (Intermediate, Verified 10/31/21 15:32) Hives Sulfa (Sulfonamide Antibiotics) Allergy (Intermediate, Verified 10/31/21 15:32) Hives latex Allergy (Mild, Verified 10/31/21 15:32) Skin Irritation cefaclor [From Ceclor] Allergy (Unknown, Verified 10/31/21 15:32) codeine Allergy (Verified 10/31/21 15:32) tramadol Allergy (Verified 10/31/21 15:32) citalopram [From Celexa] Adverse Reaction (Unknown, Verified 10/31/21 15:32) Home Medications: Cetirizine HCl [Zyrtec] 10 mg PO DAILY 08/15/17 [History] Omeprazole [Prilosec] 40 mg PO DAILY 08/15/17 [History] Sertraline HCl [Zoloft] 50 mg PO DAILY 08/15/17 [History] Albuterol 17 gm IH Q4HPRN PRN 01/20/21 [History] Cholecalciferol (Vitamin D3) [Vitamin D3] 2,000 unit PO DAILY 01/20/21 [History] Cyanocobalamin (Vitamin B-12) [Vitamin B12] 2,500 mcg PO DAILY 01/20/21 [History] Echinacea Purpurea Extract [Echinacea] 125 mg PO DAILY 01/20/21 [History] Iron,Carb/Vit C/Vit B12/Folic [Iron 100 Plus Tablet] 1 each PO DAILY 01/20/21 [History] Krill/Om3/Dha/Epa/Om6/Lip/Astx [Krill Oil 1,000 mg Softgel] 2 each PO DAILY 01/20/21 [History] Spironolactone 50 mg PO DAILY 01/31/21 [History] Hx Tetanus, Diphtheria Vaccination/Date Given: Yes Hx Influenza Vaccination/Date Given: Yes Hx Pneumococcal Vaccination/Date Given: No Immunizations Up to Date: Yes Travel Risk - International Travel Have you traveled outside of the country in past 3 weeks: No - Coronavirus Screening Are you exhibiting any of the following symptoms?: No Close contact with a COVID-19 positive Pt in past 14-21 Days: No - Vaccine Status Have you recieved a Covid-19 vaccination: Yes 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 - Vaccination Dates Date of 2cond Vaccination (if applicable): December 2020 Comment: Booster- June 2021 - Review of Systems Constitutional: No Symptoms, No Fever, No Chills Eyes: No Symptoms Ears, Nose, & Throat: No Symptoms Respiratory: No Symptoms, No Cough, No Dyspnea Cardiac: No Symptoms, No Chest Pain, No Edema, No Syncope Abdominal/Gastrointestinal: No Symptoms, No Abdominal Pain, No Nausea, No Vomiting, No Diarrhea Genitourinary Symptoms: No Symptoms, No Dysuria Musculoskeletal: No Symptoms, No Back Pain, No Neck Pain Skin: No Symptoms, No Rash Neurological: No Symptoms, No Dizziness, No Focal Weakness, No Sensory Changes Psychological: No Symptoms Endocrine: No Symptoms Hematologic/Lymphatic: No Symptoms Immunological/Allergic: No Symptoms All Other Systems: Reviewed and Negative - Past Medical History Pertinent Past Medical History: Yes Neurological History: Migraines ENT History: Cataracts Cardiac History: Hypertension Respiratory History: Asthma Endocrine Medical History: Hypothyroidism Musculoskeletal History: Osteoarthritis GI Medical History: Esophageal Disorder, GERD, Gallbladder Disease History: No Pertinent History, Other Psycho-Social History: Anxiety, Depression Female Reproductive Disorders: Endometriosis Other Medical History: SAME SURGERY ON THE L 4 YEARS AGO WITH NO PROBLEMS AFTER. - Past Surgical History Past Surgical History: Yes Neuro Surgical History: No Pertinent History Cardiac: No Pertinent History Respiratory: No Pertinent History Gastrointestinal: Appendectomy, Cholecystectomy, Exploratory Laparoscopy Genitourinary: Kidney Surgery, Other Musculoskeletal: Orthopedic Surgery Female Surgical History: Hysterectomy Other Surgical History: carpal tunnel.kidney stone removal,EGD Aug 2017,septoplasty, kidney stone removal, colonoscopy, arthroplasty, [facility] wrist, Left knee replacement 2017 cholecystectomy, total hysterectomy, reconstructive surgery left foot and bone spur removed left heel - Social History Smoking Status: Never smoker Exposure to second hand smoke: No Drug Use: none Patient Lives Alone: Yes - Female History Hx Now: No - Nursing Vital Signs Nursing Vital Signs: Initial Vital Signs Temperature 97.2 F 10/31/21 15:36 Pulse Rate 87 10/31/21 15:36 Respiratory Rate 18 10/31/21 15:36 Blood Pressure 125/81 10/31/21 15:36 O2 Sat by Pulse Oximetry 97 10/31/21 15:36 Pain Scale Pain Intensity 2 - Physical Exam General Appearance: no apparent distress, alert Eyes, Ears, Nose, Throat Exam: normal ENT inspection, TMs normal, pharynx normal, moist mucous membranes Neck Exam: normal inspection, non-tender, supple, full range of motion Cardiovascular/Respiratory Exam: chest non-tender, normal breath sounds, regular rate/rhythm, heart sounds normal, no respiratory distress Abdominal Exam: non-tender, soft, No guarding, No tenderness Back Exam: normal inspection, normal range of motion, No CVA tenderness, No vertebral tenderness Shoulder Exam: normal inspection, non-tender, no evidence of injury, normal ROM Elbow/Forearm Exam: normal inspection, bone tenderness, limited ROM Wrist Exam: normal inspection, limited ROM, soft tissue tenderness Neuro/Tendon Exam: normal sensation, normal motor functions Mental Status Exam: alert, oriented x 3, cooperative Skin Exam: normal color, warm, dry SpO2 Interpretation: normal SpO2: 97 O2 Delivery: Room Air - Course Nursing assessment & vital signs reviewed: Yes - Radiology Exams Elbow X-ray Interpretation: Teleradiologist Report (Tiny lateral epicondyle spur and tiny well-circumscribed coronoid process heterotopic ossification presumed degenerative versus old injury. No other bony articular or soft tissue abnormalities) Forearm X-ray Interpretation: Teleradiologist Report (Tiny well-circumscribed coronoid process heterotopic ossification present degenerative versus old injury and moderate advanced first metacarpal multangular scaphoid degenerative changes. No other bony articular soft tissue abnormalities.) Wrist X-ray Interpretation: Teleradiologist Report (First metacarpal multangular scaphoid degenerative changes with tiny heterotopic ossifications and tiny triquetral bone cyst. No other articular soft tissue abnormalities.) - Progress Progress: improved Progress Note: Patient reassessed. She feels well. X-rays negative for fracture dislocation. Chronic findings observed patient declined a shoulder sling. Patient declined pain medication. Patient agrees to follow-up with primary care doctor within 48 hours for evaluation. Patient voices no other complaints or concerns at this time. Portions of this note were created with voice recognition technology. There may be grammatical, spelling, punctuation or sound alike errors 11/01/21 03:16 Counseled pt/family regarding: diagnosis, need for follow-up, rad results - Departure Departure Disposition: Home Clinical Impression: Tiny lateral epicondyle spur, Coronoid process heterotopic ossificatio, First metacarpal scaphoid degeneration, Triquetral bone cyst, Fall, Arm contusion Condition: Stable Critical Care Time: No Referrals: DIETER FERGUSON DO [Primary Care Provider] - Follow up/PCP as directed Additional Instructions: Discharge/Care Plan NEALCARMELITA Aguirre was seen on 10/31/21 in the Emergency Room. The patient was counseled regarding Diagnosis,Lab results, Imaging studies, need for follow up and when to return to the Emergency Room. Prescriptions given: Discharge Note I have spoken with the patient and/or caregivers. I have explained the patient's condition, diagnosis and treatment plan based on the information available to me at this time. I have answered the patient's and/or caregiver's questions and addressed any concerns. The patient and/or caregivers have as good understanding of the patient's diagnosis, condition and treatment plan as can be expected at this point. The vital signs have been stable. The patient's condition is stable and appropriate for discharge from the emergency department. The patient will pursue further outpatient evaluation with the primary care physician or other designated or consulting physician as outlined in the discharge instructions. The patient and/or caregivers are agreeable to this plan of care and follow-up instructions have been explained in detail. The patient and/or caregivers have received these instruction. The patient/and or caregivers are aware that any significant change in condition or worsening of symptoms should prompt an immediate return to this or the closest emergency department or call 911.
[2021-10-31 17:08] VITALS: BP 140/65; PULSE 66
[2021-11-01 03:19] VITALS: O2SAT 97
== END 2021-10-31 17:09 | disposition home or self-care (01) ==
LOC: ED 15:27
DX: S50.12XA Contusion of left forearm, initial encounter (principal); W01.0XXA Fall on same level from slipping, tripping and stumbling without subsequent striking against object, initial encounter; M77.12 Lateral epicondylitis, left elbow; M25.822 Other specified joint disorders, left elbow; M19.042 Primary osteoarthritis, left hand; M85.442 Solitary bone cyst, left hand; I10 Essential (primary) hypertension; Z79.899 Other long term (current) drug therapy
CPT/HCPCS: 73080; 73090; 73110; 99283

== ENCOUNTER 2022-05-08 18:01 | Emergency (ER) | payer OTHER ==
[2022-05-08] MEDS ORDERED: Nitrostat 0.4 MG (ED) SL ONE (18:10)
[2022-05-08] MEDS ORDERED: BABY ASPIRIN 81 MG CHEW PO ONE (18:10)
--- NOTE | 2022-05-08 18:10 | ERPHSYRPT ---
<RAEANN PARTIDA - Last Filed: 05/08/22 21:41> - History of Present Illness Time Seen by Provider: 05/08/22 18:02 Allergies/Adverse Reactions: hydrocodone Allergy (Severe, Verified 10/31/21 15:32) Tightness of Throat erythromycin base Allergy (Intermediate, Verified 10/31/21 15:32) Nausea and Vomiting Penicillins Allergy (Intermediate, Verified 10/31/21 15:32) Hives Sulfa (Sulfonamide Antibiotics) Allergy (Intermediate, Verified 10/31/21 15:32) Hives latex Allergy (Mild, Verified 10/31/21 15:32) Skin Irritation cefaclor [From Ceclor] Allergy (Unknown, Verified 10/31/21 15:32) codeine Allergy (Verified 10/31/21 15:32) tramadol Allergy (Verified 10/31/21 15:32) citalopram [From Celexa] Adverse Reaction (Unknown, Verified 10/31/21 15:32) Home Medications: Cetirizine HCl [Zyrtec] 10 mg PO DAILY 08/15/17 [History] Omeprazole [Prilosec] 40 mg PO DAILY 08/15/17 [History] Sertraline HCl [Zoloft] 50 mg PO DAILY 08/15/17 [History] Albuterol 17 gm IH Q4HPRN PRN 01/20/21 [History] Cholecalciferol (Vitamin D3) [Vitamin D3] 2,000 unit PO DAILY 01/20/21 [History] Cyanocobalamin (Vitamin B-12) [Vitamin B12] 2,500 mcg PO DAILY 01/20/21 [History] Echinacea Purpurea Extract [Echinacea] 125 mg PO DAILY 01/20/21 [History] Iron,Carb/Vit C/Vit B12/Folic [Iron 100 Plus Tablet] 1 each PO DAILY 01/20/21 [History] Krill/Om3/Dha/Epa/Om6/Lip/Astx [Krill Oil 1,000 mg Softgel] 2 each PO DAILY 01/20/21 [History] Spironolactone 50 mg PO DAILY 01/31/21 [History] - Radiology Exams Chest X-ray Interpretation: Negative - CT Exams Chest CT Interpretation: Tele-radiologist Report - Progress Progress: improved Air Movement: good Blood Culture(s) Obtained: No Antibiotics given: No - Departure Departure Disposition: Home Clinical Impression: Chest pain, Pleural mass Condition: Stable Critical Care Time: No Referrals: DIETER FERGUSON, [Primary Care Provider] - Follow up/PCP as directed Instructions: Chest Pain (DC) Additional Instructions: Patient states that she had some abnormality in her left posterior chest before that was negative on PET scan she will follow-up with Dr. Cordero about this recent scan. Prescriptions: Tramadol HCl 50 mg [Ultram 50 mg] 50 mg PO Q6H 3 Days #12 tablet <AUBREE PRYOR - Last Filed: 05/09/22 21:23> - History of Present Illness Historian: patient Exam Limitations: no limitations Patient Subjective Stated Complaint: PT states "I was up this morning and had horrible chest pain since 4 am this morning. The pain goes to the left side of my chest and into my back." Triage Nursing Assessment: Pt presented alert and oriented X3, skin pwd Pt ambulates with an upright steady gait, able to speak in clear full sentences pt in no apparent respiratory distress. Pt resting comfortably on the bed. Physician History: This is a 61-year-old patient getting to the ED with chest pain since 4 AM -Reports that last night she had neck and shoulder pain-denies any physical exertion -This morning woke up at 4 AM she noticed right-sided chest pain which eventually radiated to left side of chest-rates it at about a 1/10 intermittent pain,dull., No aggravating or relieving factors, radiating toward her left neck -Denies any nausea/vomiting/diaphoresis -Denies prior history of chest pain/ cardiac history - States the apin did not wake her up from sleep - Denies sudden sharp pain -Not on blood thinners -Has a history of depression, asthma,GERD -Endorses recent exposure to COVID Timing/Duration: today Activities at Onset: none Quality: dullness Location: substernal Chest Pain Radiation: jaw, neck Severity of Pain-Max: mild Severity of Pain-Current: mild Modifying Factors: Improves With: nothing Associated Symptoms: No nausea, No vomiting, No palpitations, No heartburn, No shortness of breath, No cough, No weakness Prior Chest Pain/Cardiac Workup: no prior chest pain Nitro Today/Relief: 0.4 mg x 1, provided by ED Aspirin Treatment Today: 325 mg x 1, provided by ED Hx Tetanus, Diphtheria Vaccination/Date Given: Yes Hx Influenza Vaccination/Date Given: Yes Hx Pneumococcal Vaccination/Date Given: No Immunizations Up to Date: Yes Travel Risk - International Travel Have you traveled outside of the country in past 3 weeks: No - Coronavirus Screening Are you exhibiting any of the following symptoms?: No Close contact with a COVID-19 positive Pt in past 14-21 Days: No - Vaccine Status Have you recieved a Covid-19 vaccination: Yes [employer]: Moderna - Vaccination Dates Date of 2cond Vaccination (if applicable): December 2020 Comment: Booster- June 2021 - Review of Systems Constitutional: No Symptoms, No Fever, No Chills Eyes: No Symptoms, No Discharge, No Vision Changes Ears, Nose, & Throat: No Symptoms, No Ear Discharge, No Nose Discharge, No Epistaxis, No Throat Pain Respiratory: No Symptoms, No Cough, No Dyspnea on Exertion (REICH) Cardiac: Chest Pain, No Edema, No Palpitations, No Syncope, No Orthopnea, No PND Abdominal/Gastrointestinal: No Symptoms, No Abdominal Pain, No Nausea, No Vomiting, No Diarrhea, No Appetite Changes Genitourinary Symptoms: No Symptoms, No Dysuria, No Frequency, No Urgency Musculoskeletal: No Symptoms, No Back Pain, No Joint Pain, No Joint Swelling Skin: No Symptoms, No Rash Neurological: No Symptoms, No Dizziness, No Focal Weakness, No Speech Changes Psychological: No Symptoms, No Drug Abuse Endocrine: No Symptoms Hematologic/Lymphatic: No Symptoms Immunological/Allergic: No Symptoms All Other Systems: Reviewed and Negative - Past Medical History Pertinent Past Medical History: Yes Neurological History: Migraines ENT History: Cataracts Cardiac History: Hypertension Respiratory History: Asthma Endocrine Medical History: Hypothyroidism Musculoskeletal History: Osteoarthritis GI Medical History: Esophageal Disorder, GERD, Gallbladder Disease History: No Pertinent History, Other Psycho-Social History: Anxiety, Depression Female Reproductive Disorders: Endometriosis Other Medical History: SAME SURGERY ON THE L 4 YEARS AGO WITH NO PROBLEMS AFTER. - Past Surgical History Past Surgical History: Yes Neuro Surgical History: No Pertinent History Cardiac: No Pertinent History Respiratory: No Pertinent History Gastrointestinal: Appendectomy, Cholecystectomy, Exploratory Laparoscopy Genitourinary: Kidney Surgery, Other Musculoskeletal: Orthopedic Surgery Female Surgical History: Hysterectomy Other Surgical History: carpal tunnel.kidney stone removal,EGD Aug 2017,septoplasty, kidney stone removal, colonoscopy, arthroplasty, [facility] antonio wrist, Left knee replacement 2017 cholecystectomy, total hysterectomy, reconstructive surgery left foot and bone spur removed left heel - Social History Smoking Status: Never smoker Exposure to second hand smoke: No Drug Use: none Patient Lives Alone: Yes - Nursing Vital Signs Nursing Vital Signs: Initial Vital Signs Temperature 96.8 F 05/08/22 18:01 Pulse Rate 72 05/08/22 18:01 Respiratory Rate 22 05/08/22 18:01 Blood Pressure 174/82 05/08/22 18:01 O2 Sat by Pulse Oximetry 98 05/08/22 18:01 Pain Scale Pain Intensity 0 - Physical Exam General Appearance: no apparent distress Eye Exam: PERRL/EOMI, eyes nml inspection Ears, Nose, Throat Exam: normal ENT inspection, TMs normal, pharynx normal Neck Exam: normal inspection, non-tender, supple, full range of motion Respiratory Exam: normal breath sounds, lungs clear, No chest tenderness, No respiratory distress Cardiovascular Exam: regular rate/rhythm, normal heart sounds, normal peripheral pulses Gastrointestinal/Abdomen Exam: soft, normal bowel sounds, No tenderness Pelvic Exam: not done Rectal Exam: deferred Back Exam: normal inspection, No CVA tenderness Extremity Exam: normal inspection, normal range of motion, No frances's sign, No pedal edema Neurologic Exam: alert, oriented x 3, cooperative Skin Exam: normal color, warm, dry, jaundice, No rash Lymphatic Exam: No adenopathy SpO2 Interpretation: normal SpO2: 98 O2 Delivery: Room Air - Course EKG Interpreted by Me: RATE (69), Sinus Rhythm, NORMAL INTERVALS Ordered Tests: Active Orders 24 hr Category Date Time Status TROPONIN Q4H Lab 05/08/22 20:40 Completed Medication Summary Discontinued Medications Generic Name Dose Route Start Last Admin Trade Name Elverq PRN Reason Stop Dose Admin Aspirin 324 mg 05/08/22 18:10 05/08/22 18:53 Aspirin 81 Mg Tab.Chew PO 05/08/22 18:11 324 mg STAT ONE Administration Nitroglycerin 0.4 mg 05/08/22 18:10 05/08/22 18:54 Nitroglycerin 0.4 Mg (Ed) 0.4 Mg Tab.Subl SL 05/08/22 18:11 0.4 mg STAT ONE Administration Lab/Rad Data: Laboratory Result Diagrams 05/08/22 18:41 05/08/22 18:10 Laboratory Results 05/08/22 05/08/22 05/08/22 Range/Units 20:40 18:41 18:41 WBC (4.0-10.5) x10^3/uL RBC (4.1-5.4) x10^6/uL Hgb (12.0-16.0) g/dL Hct (35-47) % MCV (78-100) fL MCH (26-32) pg MCHC (32-36) g/dL RDW (11.5-14.0) % Plt Count (150-450) x10^3/uL MPV (7.5-11.0) fL Gran % (36.0-66.0) % Immature Gran % (Auto) (0.00-0.4) % Nucleat RBC Rel Count (0.00-0.1) % Eos # (Auto) (0-0.5) x10^3/uL Immature Gran # (Auto) (0.00-0.03) x10^3u/L Absolute Lymphs (auto) (1.0-4.6) x10^3/uL Absolute Monos (auto) (0.0-1.3) x10^3/uL Absolute Nucleated RBC (0.00-0.01) x10^3u/L Lymphocytes % (24.0-44.0) % Monocytes % (0.0-12.0) % Eosinophils % (0.00-5.0) % Basophils % (0.0-0.4) % Absolute Granulocytes (1.4-6.9) x10^3/uL Basophils # (0-0.4) x10^3/uL D-Dimer (0.0-0.50) mg/L Sodium (137-145) mmol/L Potassium (3.5-5.1) mmol/L Chloride (98-107) mmol/L Carbon Dioxide (22-30) mmol/L Anion Gap (5-15) MEQ/L BUN (7-17) mg/dL Creatinine (0.52-1.04) mg/dL Estimated GFR ML/MIN Glucose (74-106) mg/dL Calcium (8.4-10.2) mg/dL Total Bilirubin (0.2-1.3) mg/dL AST (14-36) U/L ALT (0-35) U/L Alkaline Phosphatase (38-126) U/L Creatine Kinase (30-135) U/L Troponin I < 0.012 < 0.012 (0.000-0.034) ng/mL Serum Total Protein (6.3-8.2) g/dL Albumin (3.5-5.0) g/dL Urine Opiates Level (NEGATIVE) Ur Methadone (NEGATIVE) Urine Barbiturates (NEGATIVE) Ur Phencyclidine (PCP) (NEGATIVE) Urine Amphetamine (NEGATIVE) U Benzodiazepine Level (NEGATIVE) Urine Cocaine (NEGATIVE) Urine Marijuana (THC) (NEGATIVE) Influenza Type A Ag NEGATIVE (NEGATIVE) Influenza Type B Ag NEGATIVE (NEGATIVE) RSV (PCR) NEGATIVE (Negative) SARS-CoV-2 (PCR) NEGATIVE (NEGATIVE) 05/08/22 05/08/22 05/08/22 Range/Units 18:41 18:41 18:11 WBC 4.8 (4.0-10.5) x10^3/uL RBC 4.72 (4.1-5.4) x10^6/uL Hgb 14.1 (12.0-16.0) g/dL Hct 44.1 (35-47) % MCV 93.4 (78-100) fL MCH 29.9 (26-32) pg MCHC 32.0 (32-36) g/dL RDW 12.6 (11.5-14.0) % Plt Count 224 (150-450) x10^3/uL MPV 10.2 (7.5-11.0) fL Gran % 57.1 (36.0-66.0) % Immature Gran % (Auto) 0.2 (0.00-0.4) % Nucleat RBC Rel Count 0.0 (0.00-0.1) % Eos # (Auto) 0.26 (0-0.5) x10^3/uL Immature Gran # (Auto) 0.01 (0.00-0.03) x10^3u/L Absolute Lymphs (auto) 1.22 (1.0-4.6) x10^3/uL Absolute Monos (auto) 0.55 (0.0-1.3) x10^3/uL Absolute Nucleated RBC 0.00 (0.00-0.01) x10^3u/L Lymphocytes % 25.3 (24.0-44.0) % Monocytes % 11.4 (0.0-12.0) % Eosinophils % 5.4 H (0.00-5.0) % Basophils % 0.6 (0.0-0.4) % Absolute Granulocytes 2.76 (1.4-6.9) x10^3/uL Basophils # 0.03 (0-0.4) x10^3/uL D-Dimer 0.62 H* (0.0-0.50) mg/L Sodium (137-145) mmol/L Potassium (3.5-5.1) mmol/L Chloride (98-107) mmol/L Carbon Dioxide (22-30) mmol/L Anion Gap (5-15) MEQ/L BUN (7-17) mg/dL Creatinine (0.52-1.04) mg/dL Estimated GFR ML/MIN Glucose (74-106) mg/dL Calcium (8.4-10.2) mg/dL Total Bilirubin (0.2-1.3) mg/dL AST (14-36) U/L ALT (0-35) U/L Alkaline Phosphatase (38-126) U/L Creatine Kinase (30-135) U/L Troponin I (0.000-0.034) ng/mL Serum Total Protein (6.3-8.2) g/dL Albumin (3.5-5.0) g/dL Urine Opiates Level NEGATIVE (NEGATIVE) Ur Methadone NEGATIVE (NEGATIVE) Urine Barbiturates NEGATIVE (NEGATIVE) Ur Phencyclidine (PCP) NEGATIVE (NEGATIVE) Urine Amphetamine NEGATIVE (NEGATIVE) U Benzodiazepine Level NEGATIVE (NEGATIVE) Urine Cocaine NEGATIVE (NEGATIVE) Urine Marijuana (THC) NEGATIVE (NEGATIVE) Influenza Type A Ag (NEGATIVE) Influenza Type B Ag (NEGATIVE) RSV (PCR) (Negative) SARS-CoV-2 (PCR) (NEGATIVE) 05/08/22 Range/Units 18:10 WBC (4.0-10.5) x10^3/uL RBC (4.1-5.4) x10^6/uL Hgb (12.0-16.0) g/dL Hct (35-47) % MCV (78-100) fL MCH (26-32) pg MCHC (32-36) g/dL RDW (11.5-14.0) % Plt Count (150-450) x10^3/uL MPV (7.5-11.0) fL Gran % (36.0-66.0) % Immature Gran % (Auto) (0.00-0.4) % Nucleat RBC Rel Count (0.00-0.1) % Eos # (Auto) (0-0.5) x10^3/uL Immature Gran # (Auto) (0.00-0.03) x10^3u/L Absolute Lymphs (auto) (1.0-4.6) x10^3/uL Absolute Monos (auto) (0.0-1.3) x10^3/uL Absolute Nucleated RBC (0.00-0.01) x10^3u/L Lymphocytes % (24.0-44.0) % Monocytes % (0.0-12.0) % Eosinophils % (0.00-5.0) % Basophils % (0.0-0.4) % Absolute Granulocytes (1.4-6.9) x10^3/uL Basophils # (0-0.4) x10^3/uL D-Dimer (0.0-0.50) mg/L Sodium 140 (137-145) mmol/L Potassium 4.9 (3.5-5.1) mmol/L Chloride 103 (98-107) mmol/L Carbon Dioxide 30 (22-30) mmol/L Anion Gap 12.5 (5-15) MEQ/L BUN 19 H (7-17) mg/dL Creatinine 1.21 H (0.52-1.04) mg/dL Estimated GFR 47.9 ML/MIN Glucose 108 H (74-106) mg/dL Calcium 9.3 (8.4-10.2) mg/dL Total Bilirubin 0.50 (0.2-1.3) mg/dL AST 33 (14-36) U/L ALT 45 H (0-35) U/L Alkaline Phosphatase 75 (38-126) U/L Creatine Kinase 73 (30-135) U/L Troponin I (0.000-0.034) ng/mL Serum Total Protein 7.0 (6.3-8.2) g/dL Albumin 4.2 (3.5-5.0) g/dL Urine Opiates Level (NEGATIVE) Ur Methadone (NEGATIVE) Urine Barbiturates (NEGATIVE) Ur Phencyclidine (PCP) (NEGATIVE) Urine Amphetamine (NEGATIVE) U Benzodiazepine Level (NEGATIVE) Urine Cocaine (NEGATIVE) Urine Marijuana (THC) (NEGATIVE) Influenza Type A Ag (NEGATIVE) Influenza Type B Ag (NEGATIVE) RSV (PCR) (Negative) SARS-CoV-2 (PCR) (NEGATIVE) - Progress Progress Note: 05/08/22 19:14 Is a 61-year-old patient with no known prior cardiac history presenting to the ED evaluation of chest pain. She has received 324 mg of aspirin and has been given nitro Labs are pending at this time Has been transferred to Dr. Partida at shift change for further care. I have discussed the case in detail with him
[2022-05-08 18:45] LABS: Absolute Neutrophil Ct (ANC) 2.76 x10^3/uL (1.4-6.9); Basophil (Absolute #) 0.03 x10^3/uL (0-0.4); Eosinophil % 5.4 % (0.00-5.0); Eosinophil (Absolute #) 0.26 x10^3/uL (0-0.5); Hematocrit 44.1 % (35-47); Hemoglobin 14.1 g/dL (12.0-16.0); Lymphocyte (Absolute #) 1.22 x10^3/uL (1.0-4.6); Lymphocytes % 25.3 % (24.0-44.0); Mean Cell Volume 93.4 fL (78-100); Mean Corpuscular Hemoglobin 29.9 pg (26-32); Mean Platelet Volume 10.2 fL (7.5-11.0); Monocyte (Absolute #) 0.55 x10^3/uL (0.0-1.3); Monocytes % 11.4 % (0.0-12.0); Neutrophil % 57.1 % (36.0-66.0); Platelet Count 224 x10^3/uL (150-450); Red Blood Count 4.72 x10^6/uL (4.1-5.4); Red Cell Distribution Width 12.6 % (11.5-14.0); White Blood Count 4.8 x10^3/uL (4.0-10.5)
[2022-05-08 19:00] LABS: ALBUMIN 4.2 g/dL (3.5-5.0); ANION GAP 12.5 MEQ/L (5-15); BILIRUBIN,TOTAL 0.5 mg/dL (0.2-1.3); Calcium 9.3 mg/dL (8.4-10.2); Creatinine 1 1.21 mg/dL (0.52-1.04); EST GLOMERULAR FILTRATION RATE 47.9 ML/MIN; Potassium 4.9 mmol/L (3.5-5.1)
[2022-05-08 19:24] LABS: INFLUENZA A NEGATIVE (NEGATIVE); INFLUENZA B NEGATIVE (NEGATIVE); RESPIRATORY SYNCTIAL VIRUS NEGATIVE (Negative); SARS-CoV-2 Xpert Express NEGATIVE (NEGATIVE)
[2022-05-08 20:10] LABS: Barbiturate,Urine NEGATIVE (NEGATIVE); Benzodiazepine,Urine NEGATIVE (NEGATIVE); Cocaine,Urine NEGATIVE (NEGATIVE); Methadone,Urine NEGATIVE (NEGATIVE); Opiate,Urine NEGATIVE (NEGATIVE); PCP,Urine NEGATIVE (NEGATIVE); THC,Urine NEGATIVE (NEGATIVE)
[2022-05-08 20:13] LABS: Amphetamine,Urine NEGATIVE (NEGATIVE)
[2022-05-08 22:00] VITALS: BP 144/71; PULSE 71
[2022-05-09 21:23] VITALS: O2SAT 98
--- NOTE | 2022-05-09 21:56 | XRAY ---
Exam: AP upright portable chest film from 05/08/2022. Comparison: Two-view chest series from 06/17/2020. Indication: Chest pain. Findings: The heart size and contour are normal. There is some artifact overlying the lateral aspect of the left upper quadrant. Mild tortuosity of the descending thoracic aorta is seen. The jesse and mediastinal structures otherwise appear unremarkable. The lungs are adequately expanded and appear clear. No vascular congestion, pneumothorax, or pleural fluid is seen. Mild osteophyte formation is seen within the lower thoracic spine. Impression: 1. No acute cardiopulmonary disease is seen.
--- NOTE | 2022-05-10 20:44 | XRAY ---
Exam: CT of the chest with IV contrast, per PE protocol, from 05/08/2022. CTDI: 31.17 mGy Comparison: AP upright portable chest film from 05/08/2022. Indication: 61-year-old female with a right-sided chest pain that radiates to the left side and left jaw area; upper mid back pain; elevated d-dimer of 0.62. Technique: Post-IV contrast axial images were obtained through the chest during automated IV injection of 100 cc of Isovue-370 contrast material per PE protocol. Reconstructed coronal and sagittal images were created and reviewed. Findings: The pulmonary arteries enhance well with IV contrast and reveal no filling defects to suggest clot/emboli. The thoracic aorta reveals no evidence of aneurysm or dissection. The heart size is normal without pericardial effusion. No abnormal mediastinal lymphadenopathy is seen. The thyroid gland appears grossly unremarkable. There is decreased attenuation of the liver consistent with hepatic steatosis. Surgical clips consistent with prior cholecystectomy are noted within the right upper quadrant. The adrenal glands appear unremarkable. There is a tiny cortical cyst at the upper posterior margin of the right kidney on axial image #258. There is some minimal linear atelectasis or scarring at the posterior left lung base. On axial image #62 of series 2, there is a small convex pleural-based elliptical mass measuring about 3.2 cm in width and 1.2 cm in AP depth abutting the posterior pleural surface of the left lower lobe. This is seen on axial images #47 through #68 on the thin axial images. It measures -11.45 Hounsfield units which is encouraging this may represent a benign process. However, a malignant lesion is not excluded with certainty. One example of a benign process would be a pleural fibroma. There are many possible malignant etiologies. 2 avenues of reasonable follow-up would be a CT examination of the chest with IV contrast in 3-6 months versus biopsy. The remainder of the lungs appears clear. No pneumothorax or pleural effusion is seen. The skeleton reveals no acute fracture or aggressive bone lesion. Mild diffuse thoracic spondylosis is evident. Impression: 1. I see no evidence of pulmonary embolism or evidence of thoracic aortic aneurysm or dissection. 2. There is a relatively small elliptical, pleural-based soft tissue mass at the posterior pleural margin of the left lower lobe measuring 3.2 cm in width and about 1.2 cm in maximum AP depth. See above discussion and recommendations. 3. Hepatic steatosis. 4. Minimal focal scarring/atelectasis at the posterior left lung base. 5. No other suspicious cardiopulmonary disease is seen.
== END 2022-05-08 22:03 | disposition home or self-care (01) ==
LOC: ED 18:01
DX: R07.9 Chest pain, unspecified (principal); J94.8 Other specified pleural conditions; I10 Essential (primary) hypertension; Z79.899 Other long term (current) drug therapy; Z20.822 Contact with and (suspected) exposure to COVID-19; Z79.891 Long term (current) use of opiate analgesic
CPT/HCPCS: 0241U; 36415; 71045; 71260; 80053; 80307; 82550; 84484; 85025; 85379; 93005; 99284; A9270-GY

== ENCOUNTER 2023-02-09 16:07 | Emergency (ER) | payer OTHER ==
[2023-02-09 17:20] VITALS: O2SAT 96
--- NOTE | 2023-02-09 17:51 | ERPHSYRPT ---
- History of Present Illness Source: patient Exam Limitations: no limitations Patient Subjective Stated Complaint: Left leg/foot pain Triage Nursing Assessment: Patient brought back to ED per w/c and transferred to bed per self. Patient A+O X 3. Patient's skin pink, warm and dry. Patient complains of left foot and lower leg pain since January 23. Patient states she had a fall on January 23 and was seen in [facility] and negative x rays. Patient states she is still having pain when ambulating. Patient complains of pain 06/26. No visible injuries noted. Physician History: Pt fell at her home on 01/21/23 and injured her L foot/L knee. Pt was seen at w negative XR's. She complains of continued pain which is moderate w weight bearing. She has no calf pain/edema/chest pain/dyspnea. Method of Injury: fell Occurred: other (01/21/23) Severity of Pain-Max: moderate Severity of Pain-Current: mild Lower Extremities Pain: knee: left, foot: left Modifying Factors: Improves With: movement Associated Symptoms: none Allergies/Adverse Reactions: hydrocodone Allergy (Severe, Verified 02/09/23 17:10) Tightness of Throat erythromycin base Allergy (Intermediate, Verified 02/09/23 17:10) Nausea and Vomiting Penicillins Allergy (Intermediate, Verified 02/09/23 17:10) Hives Sulfa (Sulfonamide Antibiotics) Allergy (Intermediate, Verified 02/09/23 17:10) Hives latex Allergy (Mild, Verified 02/09/23 17:10) Skin Irritation cefaclor [From Ceclor] Allergy (Unknown, Verified 02/09/23 17:10) codeine Allergy (Verified 02/09/23 17:10) tramadol Allergy (Verified 02/09/23 17:10) citalopram [From Celexa] Adverse Reaction (Unknown, Verified 02/09/23 17:10) Home Medications: Cetirizine HCl [Zyrtec] 10 mg PO DAILY 08/15/17 [History] Omeprazole [Prilosec] 40 mg PO DAILY 08/15/17 [History] Sertraline HCl [Zoloft] 50 mg PO DAILY 08/15/17 [History] Albuterol 17 gm IH Q4HPRN PRN 01/20/21 [History] Cholecalciferol (Vitamin D3) [Vitamin D3] 2,000 unit PO DAILY 01/20/21 [History] Cyanocobalamin (Vitamin B-12) [Vitamin B12] 2,500 mcg PO DAILY 01/20/21 [History] Echinacea Purpurea Extract [Echinacea] 125 mg PO DAILY 01/20/21 [History] Iron,Carb/Vit C/Vit B12/Folic [Iron 100 Plus Tablet] 1 each PO DAILY 01/20/21 [History] Krill/Om3/Dha/Epa/Om6/Lip/Astx [Krill Oil 1,000 mg Softgel] 2 each PO DAILY 01/20/21 [History] Spironolactone 50 mg PO DAILY 01/31/21 [History] Hx Tetanus, Diphtheria Vaccination/Date Given: Yes Hx Influenza Vaccination/Date Given: Yes Hx Pneumococcal Vaccination/Date Given: No Travel Risk - International Travel Have you traveled outside of the country in past 3 weeks: No - Coronavirus Screening Are you exhibiting any of the following symptoms?: No Close contact with a COVID-19 positive Pt in past 14-21 Days: No - Vaccine Status Have you recieved a Covid-19 vaccination: Yes Mis Specialist: Moderna - Vaccination Dates Date of 2cond Vaccination (if applicable): December 2020 - Review of Systems Constitutional: No Symptoms Eyes: No Symptoms Ears, Nose, & Throat: No Symptoms Respiratory: No Symptoms Cardiac: No Symptoms Abdominal/Gastrointestinal: No Symptoms Genitourinary Symptoms: No Symptoms Skin: No Symptoms Neurological: No Symptoms Psychological: No Symptoms Endocrine: No Symptoms Hematologic/Lymphatic: No Symptoms Immunological/Allergic: No Symptoms - Past Medical History Pertinent Past Medical History: Yes Neurological History: Migraines ENT History: Cataracts Cardiac History: High Cholesterol, Hypertension Respiratory History: Asthma Endocrine Medical History: No Pertinent History Musculoskeletal History: Fractures, Osteoarthritis GI Medical History: Esophageal Disorder, GERD, Gallbladder Disease History: No Pertinent History, Other Psycho-Social History: Anxiety, Depression Female Reproductive Disorders: Endometriosis Other Medical History: PMHX: LEFT TKR 2017, HYSTERECTOMY 1996, CARPAL TUNNEL RELEASES BILATERAL 1998 & 2003, LEFT FOOT RECONSTRUCTIVE SURGERY 1991, ACHILLES TENDON SURGERY 2016 LEFT, 2019 RIGHT , HX FX LEF TFOOT, RIGHT THUMB/WRIST, LEFT HAND - Past Surgical History Past Surgical History: Yes Neuro Surgical History: No Pertinent History Cardiac: No Pertinent History Respiratory: No Pertinent History Gastrointestinal: Appendectomy, Cholecystectomy, Exploratory Laparoscopy Genitourinary: Kidney Surgery, Other Musculoskeletal: Orthopedic Surgery Female Surgical History: Hysterectomy Other Surgical History: carpal tunnel.kidney stone removal,EGD Aug 2017,septoplasty, kidney stone removal, colonoscopy, arthroplasty, [facility] antonio wrist, Left knee replacement 2017 cholecystectomy, total hysterectomy, reconstructive surgery left foot and bone spur removed left heel - Social History Smoking Status: Never smoker Exposure to second hand smoke: No Drug Use: none Patient Lives Alone: Yes - Nursing Vital Signs Nursing Vital Signs: Initial Vital Signs Temperature 97.2 F 02/09/23 17:11 Pulse Rate 79 02/09/23 17:11 Respiratory Rate 18 02/09/23 17:11 Blood Pressure 106/63 02/09/23 17:11 O2 Sat by Pulse Oximetry 96 02/09/23 17:11 Pain Scale Pain Intensity 5 WNL - Physical Exam General Appearance: no apparent distress Eyes, Ears, Nose, Throat Exam: normal ENT inspection, TMs normal, pharynx normal, moist mucous membranes Neck Exam: normal inspection, non-tender, supple, full range of motion, No Brudzinski, No Kernig's, No meningismus, No carotid bruit Cardiovascular/Respiratory Exam: normal breath sounds, regular rate/rhythm, heart sounds normal Gastrointestinal/Abdominal Exam: non-tender, soft Back Exam: normal inspection Hips Exam: bilateral: non-tender, normal inspection, normal range of motion, no evidence of injury Legs Exam: bilateral leg: non-tender, normal inspection, normal range of motion, no evidence of injury Knees Exam: left knee: other (Previous L knee replacement/No edema/mild lateral TTP) Ankle Exam: bilateral ankle: non-tender, normal inspection, normal range of motion, no evidence of injury Foot Exam: left foot: other (L foot w medial TTP/No edema/No erythema/Good pedal pulse, distal sensation, and capillary return) Neuro/Tendon Exam: normal sensation, normal motor functions, normal tendon functions, responds to pain, no evidence tendon injury, No motor deficit, No sensory deficit Mental Status Exam: alert, oriented x 3 Skin Exam: normal color, warm, dry SpO2 Interpretation: normal SpO2: 96 O2 Delivery: Room Air - Course Nursing assessment & vital signs reviewed: Yes - Radiology Exams Knee X-ray Interpretation: Interpreted by me (L knee-prosthesis in place/No fx) - CT Exams Lower Extremity CT Interpretation: Tele-radiologist Report (CT L foot-no fx/DJD/Osteopenia) Ordered Tests: Active Orders 24 hr Category Date Time Status KNEE (3 VIEWS) Stat Exams 02/09/23 17:45 Completed LOWER EXTREMITY WO CONTRAST [CT] Stat Exams 02/09/23 17:45 Completed Medication Summary Discontinued Medications Generic Name Dose Route Start Last Admin Trade Name Freq PRN Reason Stop Dose Admin Ketorolac Tromethamine 15 mg 02/09/23 20:47 02/09/23 20:52 Ketorolac Tromethamine 30 Mg/Ml Inj IM 02/09/23 20:48 15 mg STAT ONE Administration Ketorolac Tromethamine Confirm 02/09/23 20:50 Ketorolac Tromethamine 30 Mg/Ml Inj Administered 02/09/23 20:51 Dose 30 mg .ROUTE .STK-MED ONE - Progress Progress Note: 02/09/23 20:48 Nursing note and vital signs reviewed No food or housing insecurities noted Pt refused pain meds during majority of stay but agreed to Toradol before discharge L knee XR result/L foot CT result reviewed and shared w pt Pt advised to f/u w Dr. Barron for continued pain 02/09/23 23:51 Counseled pt/family regarding: diagnosis, need for follow-up, rad results Medical Desision Making - Diagnostic Testing Radiological Interpretation: Reviewed by me, Discussed w/ radiologist - Risk of complications The pt has a mod risk of morbidity or mortality based on: Need for prescription drug management - Departure Departure Disposition: Home Clinical Impression: Foot contusion, Strain of left knee Condition: Stable Critical Care Time: No Referrals: DIETER FERGUSON DO [Primary Care Provider] - Follow up/PCP as directed DEJAH HOWELL DPM [ACTIVE STAFF] - Follow up/PCP as directed Instructions: Contusion (DC), Foot Sprain (DC) Additional Instructions: Weight bearing as tolerated Toradol as needed for pain Follow up with your family MD and/or Dr. Barron Return to ER as needed Prescriptions: Ketorolac Trometh 10 mg Tab [TORAdol 10 MG TABLET] 10 mg PO TID PRN PRN #10 tablet PRN Reason: Pain
--- NOTE | 2023-02-09 20:43 | XRAY ---
CLINICAL HISTORY:History of fall followed by left foot pain; COMPARISON:None; TECHNIQUES:Multiple axial slices with coronal and sagittal reformatting of CT scan left foot without contrast have been submitted for interpretation; FINDINGS: Bone density is mildly reduced. No definite acute fracture or dislocation is noted. No lytic or sclerotic lesion is identified. Degenerative changes are noted in the first metatarsophalangeal joint and multiple interphalangeal and intertarsal joints. Evidence of changes related to Achilles tendon repair/chronic calcific tendonitis. Dorsal and plantar calcaneal spurs are noted. Surrounding soft tissues and fat planes are intact. IMPRESSION: Mildly reduced bone density was noted. No definite acute fracture or dislocation is seen. Degenerative osteoarthritic changes noted involving the first metatarsophalangeal and multiple interphalangeal and intertarsal joints. Dorsal and plantar calcaneus spurs noted. Rest of the details as above. Electronically Signed by: Randall Hickman MD. (02/09/2023 19:37:04 NURSING INFORMATICS SPECIALIST)
[2023-02-09] MEDS ORDERED: TORAdol 30 mg Injection IM ONE (20:47)
[2023-02-09 20:50] VITALS: BP 149/62; PULSE 74
[2023-02-09] MEDS ORDERED: TORAdol 30 mg Injection ONE (20:50)
--- NOTE | 2023-02-09 22:58 | XRAY ---
Indication: Pain following fall. Comparison: January 23, 2023 3 view left knee unchanged again demonstrating osteopenia and total knee arthroplasty with intact prosthesis. No new/acute bony, articular, or soft tissue abnormalities.
== END 2023-02-09 21:26 | disposition home or self-care (01) ==
LOC: ED 16:07
DX: S90.32XA Contusion of left foot, initial encounter (principal); S83.92XA Sprain of unspecified site of left knee, initial encounter; W19.XXXA Unspecified fall, initial encounter; E78.5 Hyperlipidemia, unspecified; I10 Essential (primary) hypertension; Z79.899 Other long term (current) drug therapy
CPT/HCPCS: 73562; 73700; 96372; 99283; J1885

== ENCOUNTER 2023-07-09 09:35 | Day surgery (SDC) | payer OTHER ==
--- NOTE | 2023-07-09 09:09 | HP ---
DATE OF SURGERY: 07/09/2023 HISTORY OF PRESENT ILLNESS: The patient is a 63-year-old increased dysphagia upper esophagus, problems swallowing capsules, needs upper endoscopy possible biopsy possible dilatation. History of polyps, needs follow up screening colonoscopy. Occasional bright red blood per rectum when she wipes. The patient has some hemorrhoids. No change in bowel movements. No new pain. Family history of colon cancer. PAST MEDICAL HISTORY: Glaucoma, hypertension, asthma, depression, heartburn, arthritis, gout, reflux. PAST SURGICAL HISTORY: Cholecystectomy. Carpal tunnel. Hysterectomy. Knee arthroplasty. Cataract. Endoscopy. Knee scope. Laparoscopy in the past. Appendectomy. MEDICATIONS: Latanoprost drops, meloxicam, albuterol sulfate for some chronic obstructive pulmonary disease and asthma, fluticasone furoate, allopurinol (gout), vitamin D3, ferrous sulfate, vitamin B12, cetirizine, multivitamin, Krill oil, omeprazole, spironolactone, Echinacea. ALLERGIES: CECLOR. CITALOPRAM. CODEINE. ERYTHROMYCIN. SULFA. HYDROCODONE. PENICILLIN. LATEX. FAMILY HISTORY: Colon cancer, heart disease, breast cancer, skin cancer, prostate cancer. SOCIAL HISTORY: No smoking. Occasional alcohol use. REVIEW OF SYSTEMS: Fourteen systems reviewed. No chest pain or palpitations. Other systems negative or noncontributory as above and per preadmission questionnaire. PHYSICAL EXAMINATION: Height 5'5". BMI 42. GENERAL: No acute distress. A chronically ill female. HEENT: Sclerae nonicteric. EOMI. Oral mucous membranes moist. NECK: No JVD. CHEST: Equal excursion, nonlabored breathing. CVS: Regular rate and rhythm. ABDOMEN: Soft. EXTREMITIES: No cyanosis or edema. NEURO: Alert, oriented, moving extremities symmetrically. RECTAL: Deferred timed to endoscopy exam. PSYCH: Appropriate mood and affect. SKIN: Dry. IMPRESSION: Dysphagia, history of polyps, question of history of flare up of internal hemorrhoids. I recommend EGD possible dilatation possible biopsy, colonoscopy, possible hemorrhoid banding. General risk of bleeding or infection, risk of bowel injury or perforation possible requiring open procedure, risk of incomplete exam possibly requiring barium enema or barium swallow, risk of missed or nondiagnosis, possible need for referral. Risk of anesthesia, deep vein thrombosis, pulmonary embolism, pneumonia. Perioperative aches and pains, anesthesia, sedation or bowel prep. Possibility that dilatation does improve her swallowing might need to be done again down the road. Possibility that dilatation does not improve her swallowing she may need further work up and/or testing, other studies or procedures. She understands and agrees to the planned procedure. Will proceed with EGD possible biopsy possible dilatation, colonoscopy possible hemorrhoid banding depending on operative findings. She understands the hemorrhoid banding, risk of progression of hemorrhoid disease, risk of bleeding, aches and pains but not limited to, possibility of no improvement. She otherwise needs to continue high fiber diet to titrate soft bulky stools and avoid straining when she does have bowel movements.
[2023-07-09] MEDS ORDERED: Lactated Ringers 1,000 ML IV ONE (09:50)
[2023-07-09] MEDS ORDERED: Lactated Ringers 1,000 ML IV SCH (10:00)
[2023-07-09 10:38] LABS: Absolute Neutrophil Ct (ANC) 4.53 x10^3/uL (1.4-6.9); BASOPHIL % 0.7 % (0.0-0.4); Basophil (Absolute #) 0.05 x10^3/uL (0-0.4); Eosinophil % 2.1 % (0.00-5.0); Eosinophil (Absolute #) 0.15 x10^3/uL (0-0.5); Hematocrit 45.6 % (35-47); Hemoglobin 14.9 g/dL (12.0-16.0); IMMATURE GRAN # 0.02 x10^3u/L (0.00-0.03); IMMATURE GRAN % 0.3 % (0.00-0.4); Lymphocytes % 22.7 % (24.0-44.0); Mean Cell Volume 93.1 fL (78-100); Mean Corpuscular Hemoglobin 30.4 pg (26-32); Mean Corpuscular Hgb Concent. 32.7 g/dL (32-36); Mean Platelet Volume 10.3 fL (7.5-11.0); Monocyte (Absolute #) 0.71 x10^3/uL (0.0-1.3); Monocytes % 10.1 % (0.0-12.0); Neutrophil % 64.1 % (36.0-66.0); Platelet Count 236 x10^3/uL (150-450); Red Cell Distribution Width 12.8 % (11.5-14.0); White Blood Count 7.1 x10^3/uL (4.0-10.5)
[2023-07-09 11:41] LABS: ALBUMIN 4.5 g/dL (3.5-5.0); ANION GAP 16.6 MEQ/L (5-15); BILIRUBIN,TOTAL 1.3 mg/dL (0.2-1.3); EST GLOMERULAR FILTRATION RATE 59.3 ML/MIN; Potassium 4.5 mmol/L (3.5-5.1); Risk Ratio 4.9; Total Protein 7.3 g/dL (6.3-8.2)
[2023-07-09] MEDS ORDERED: Versed 2 MG/2 ML Injection ONE (12:01)
[2023-07-09] MEDS ORDERED: DIPRIVAN 200 MG/20 ML IV ONE ×3 (12:01→12:27)
[2023-07-09 13:40] VITALS: BP 143/71; PULSE 68; RESP 16; TEMP 97.7; O2SAT 98
--- NOTE | 2023-07-10 08:47 | OP ---
SURGERY DATE/TIME: 07/09/2023 1207 PREOPERATIVE DIAGNOSES: 1) History of dysphagia. 2) History of polyps. 3) History of internal and external hemorrhoids. 4) History of occasional rectal bleeding. POSTOPERATIVE DIAGNOSES: 1) Mild gastritis. 2) Some mild erythema in distal esophagus. 3) Proximal esophageal narrowing and spasm. 4) Diverticulosis. 5) Small sigmoid colon polyp. 6) Internal and external hemorrhoids. 7) Fair but limited bowel prep. PROCEDURES: 1) EGD with cold biopsy of the antrum for Helicobacter pylori. 2) Cold biopsy distal esophagus to rule out erythema. 3) Proximal esophageal balloon dilatation (size 20 balloon). 4) Colonoscopy to cecum. 5) Hot biopsy polypectomy sigmoid colon small sigmoid colon polyp. 6) Internal hemorrhoid banding x2 columns. SURGEON: Dr. Pascual Barney. ANESTHESIA: MAC. ESTIMATED BLOOD LOSS: Minimal. INDICATIONS: As noted above. Risks and benefits explained in detail and not limited to and consent obtained. DESCRIPTION OF PROCEDURE AND FINDINGS: The patient is taken to the endoscopy room. MAC anesthesia introduced. After official time out and no disagreement with planned procedure, bite block positioned. Video gastroscope easily passed down the oropharynx. Proximal esophagus had some spasm and narrowing. There were no signs of any mass or lesion to biopsy. The scope was able to be passed through there down to the patent pylorus to the third portion of the duodenum. Third, second and first portions of duodenum grossly unremarkable. Back in the stomach he had some minimal to mild gastritis/gastric erythema. Cold biopsy taken to evaluate for Helicobacter pylori. Good hemostasis noted. On retroflex the gastroesophageal junction snug against the scope. No signs of any significant hiatal hernia on endoscopic view. The scope pulled back. The gastroesophageal junction was about 40 cm. Z-line was fairly crisp however there was some erythema in distal esophagus. There is no evidence of any erosion. No gross Ho's. Cold biopsy is taken for pathologic evaluation. The scope pulled back up. No signs of any obvious masses or mucosal lesions. The scope is pulled back in the proximal esophagus again there was narrowing and spasm there. She is having symptoms there. It was felt worthwhile to try to dilate this area. The scope is passed back down the stomach. A 20 balloon catheter carefully inserted in the stomach and under direct vision in the empty space. It was then pulled back up to proximal esophageal narrowing and carefully inflated first stage for 30 seconds, second stage for 30 seconds, final stage size 20 balloon dilator for 2 minutes. The balloon is then decompressed and withdrawn. The scope much more easily passed through the area back down in the stomach. It was carefully withdrawn. There was no evidence of any signs of any full thickness issues or injury secondary to dilatation. The scope is withdrawn. The patient tolerated this part of the procedure well. Attention is then turned to colonoscopy. Digital rectal exam showed she had some internal and external hemorrhoids. No signs of any polyps or rectal masses. Video colonoscope inserted and passed up the tortuous sigmoid, descending, transverse, ascending colon with external pressure the scope passed around the cecum. Appendiceal orifice and valve well visualized and photo documented. The scope is carefully withdrawn over the next nine minutes or so. No signs of any large polyps, masses or obstructing lesions. The prep overall was fair but on limited side with a lot of liquidy, semisolid stool just slightly limiting the exam for very small lesions. No signs of any large polyps, masses or obstructing lesions. The scope pulled back to the left colon. She did have some diverticula. She did have some diverticulosis in the left colon. The scope pulled back to the sigmoid. There was a small 2 to 2.5 mm polyp removed with hot biopsy forceps with brief bursts of cautery. Good hemostasis noted. Otherwise in the rectum, she had some internal and external hemorrhoids. She had some long standing external component it was felt that it did not warrant any intervention at this time. She did have some prominent internal hemorrhoids. She decided she wanted to consider trying banding so half-harry retractor carefully inserted left lateral. Quite prominent internal hemorrhoid the top edge suction community health program representative placed at top edge of the internal hemorrhoid. The band fired at the base with a good tuft of tissue noted, this was repeated. It should be noted that the right posterior did not seem to be large enough to warrant any banding. However, the anterior appeared to be large enough to warrant hemorrhoid suction band applied top edge of the hemorrhoid. Good tuft of tissue noted. Adequate hemostasis noted. The retractor is withdrawn. The patient tolerated the procedure well. She will receive Tylenol PRN. Findings were discussed with the family/friend out in the waiting area.
== END 2023-07-09 14:00 | disposition home or self-care (01) ==
LOC: SDC 09:35
PROVIDERS: ATTEND Surgery
DX: K29.50 Unspecified chronic gastritis without bleeding (principal); Z86.010 Personal history of colon polyps; K22.2 Esophageal obstruction; K57.30 Diverticulosis of large intestine without perforation or abscess without bleeding; K64.4 Residual hemorrhoidal skin tags; K64.8 Other hemorrhoids; K63.5 Polyp of colon; I10 Essential (primary) hypertension; Z79.899 Other long term (current) drug therapy; Z80.0 Family history of malignant neoplasm of digestive organs
CPT/HCPCS: 36415; 80053; 80061; 82306; 82607; 83036; 83721; 85025; C1726; J2250; J2704